=== PATIENT | male | born 1960 | race Caucasian/White ===

== ENCOUNTER 2018-06-25 13:19 | Inpatient (IN) | payer OTHER ==
--- NOTE | 2018-06-25 13:27 | PDOC ---
History of Present Illness - General Chief Complaint: Nausea/Vomiting Stated Complaint: Nausea/Vomiting Time Seen by Provider: 06/25/18 13:26 History Source: Patient, Jail Records Exam Limitations: No Limitations - History of Present Illness Initial Comments: 06/25/18 13:27 57 year old man with a history of ESRD and DM who presents from [facility] with profuse unremitting diarrhea for 1 day and found to be positive for C. diff and with new fever of 101F and RLQ pain that is sharp and nonradiating. The patient reports that prior to yesterday he had a 2 day history of constipation and 1 episode of NBNB vomiting. The patient states that he got a dose of antibiotics at [facility] but he is not sure what antibiotic was given. He denies any nausea at bedside, shortness of breath or chest pain. He has no other complaints at bedside but having active bowel movements at bedside. He reports that he is at [facility] because he had a high fever approx 3 weeks ago and subsequently lost the use of his legs, but is unable to provide further history. Per [facility]: the patient's stool culture was unconfirmed for C.diff and he recieved 2 doses of IV 500mg Flagyl last dose at 0600 today. PMHX: as in HPI PSHX: R nephrectomy Meds: cortisone (gout) Allergies: NKDA Tob: none Etoh: none Rec drugs: none Past History - Past Medical History Allergies/Adverse Reactions: Allergies Allergy/AdvReac Type Severity Reaction Status Date / Time No Known Allergies Allergy Verified 06/25/18 13:28 Home Medications: Ambulatory Orders Acetaminophen [Tylenol .Extra-Strength -] 500 mg PO Q4H PRN 06/25/18 Aspirin 81 mg PO DAILY 06/25/18 Calcium Acetate [Phoslyra] 667 mg PO DAILY 06/25/18 Levothyroxine [Synthroid -] 25 mcg PO DAILY 06/25/18 Ondansetron HCl [Zofran] 4 mg PO PRN PRN 06/25/18 Simvastatin [Zocor -] 20 mg PO HS 06/25/18 Vitamin B Comp W-C [Nephro-Brad -] 1 tablet PO DAILY 06/25/18 Cholestyramine/Aspartame [Questran Light Packet -] 4 gm PO DAILY #30 packet Insulin (Levemir) [Levemir Vial] 7 units SQ HS #30 units 07/01/18 Vancomycin Oral Solution 125 mg PO Q6HPO 10 Days ml 07/01/18 Review of Systems - Review of Systems Able to Perform ROS?: Yes Is the patient limited Frisian proficient: No Constitutional: Yes: See HPI, Fever. No: Chills, Diaphoresis Respiratory: No: Cough, Orthopnea, Shortness of Breath Cardiac (ROS): No: Chest Pain, Lightheadedness, Palpitations, Chest Tightness ABD/GI: Yes: Constipated, Diarrhea. No: Nausea, Vomiting : No: Burning, Dysuria, Hematuria Neurological: No: Headache, Numbness, Tingling *Physical Exam - Physical Exam Comments: 06/25/18 14:02 GENERAL: Awake, alert, and fully oriented, in no acute distress HEAD: No signs of trauma, normocephalic, atraumatic EYES: EOMI, sclera anicteric, conjunctiva clear ENT: oropharynx clear without exudates. Moist mucosa NECK: Normal ROM, supple, no lymphadenopathy, JVD, or masses LUNGS: No distress, speaks full sentences, clear to auscultation anteriorly HEART: Regular rate and rhythm, normal S1 and S2, no murmurs, rubs or gallops, peripheral pulses normal and equal bilaterally. ABDOMEN: Soft, + RLQ tenderness, normoactive bowel sounds. No guarding, no rebound. No masses EXTREMITIES : Normal inspection, Normal range of motion, no edema. No clubbing or cyanosis. NEUROLOGICAL: baseline parapalegia, Normal speech SKIN: Warm, Dry, normal turgor, no rashes or lesions noted ED Treatment Course - LABORATORY CBC & Chemistry Diagram: 07/01/18 08:30 07/01/18 08:30 Medical Decision Making - Medical Decision Making 57 year old man with a history of ESRD and DM who presents from [facility] with profuse unremitting diarrhea for 1 day and found to be positive for C. diff and with new fever of 101F and RLQ pain that is sharp and nonradiating. The patient reports that prior to yesterday he had a 2 day history of constipation and 1 episode of NBNB vomiting. The patient states that he got a dose of antibiotics at [facility] but he is not sure what antibiotic was given. DDX including but not limited to: C.diff vs appendicitis vs toxic megacolon W/U: - cbc, cmp, blood culture, stool culture, - vbg, TX: - Flagyl ED Course: 06/25/18 14:16 [facility] contacted for collateral information. Unable to provide further medical history beyond admission to facility on Jun 12 at which time the patient had the diagnosis of ESRD and DM. 06/25/18 14:22 Patient accepted to medicine team. *DC/Admit/Observation/Transfer Diagnosis at time of Disposition: Diarrhea - Discharge Dispostion Disposition: HOME Condition at time of disposition: Improved Decision to Admit order: Yes - Prescriptions - Referrals - Patient Instructions - Post Discharge Activity
[2018-06-25] MEDS ORDERED: SODIUM CHLORIDE 1,000 ML IV SCH ×3 (13:45→23:45)
[2018-06-25 14:01] LABS: EOS % 0.8 % (0-4.5); HEMATOCRIT 20.8 % (35.4-49); LYMPH % 12.6 % (8-40); MCH 30.5 pg (25.7-33.7); MCHC 33.5 g/dl (32.0-35.9); MEAN PLT VOLUME 8.2 fl (7.5-11.1); MONO % 14.2 % (3.8-10.2); NEUT % 71.4 % (42.8-82.8); PLATELET COUNT 194 K/MM3 (134-434); RBC 2.28 M/mm3 (4.00-5.60); RDW 17.2 % (11.9-15.9); WHITE BLOOD COUNT 6.3 K/mm3 (4.0-10.0)
[2018-06-25 14:38] LABS: ACANTHOCYTES 0; ANISOCYTOSIS 0; HELMET CELLS 0; HOWELL-JOLLY BODIES 0; MACROCYTOSIS 0; OVALOCYTE 0; PLATELET ESTIMATE NORMAL; ROULEAU 0; SICKELED CELLS 0; TARGET CELLS 0; TEAR DROP CELLS 0; TOXIC GRANULATION 0
[2018-06-25 14:51] LABS: ALBUMIN 2.1 g/dl (3.4-5.0); ANION GAP 13 MMOL/L (8-16); BLOOD UREA NITROGEN 65 mg/dL (7-18); CHLORIDE 107 mmol/L (98-107); CO2 19 mmol/L (21-32); CREATININE 4.6 mg/dL (0.55-1.3); GLUCOSE,RANDOM 130 mg/dL (74-106); POTASSIUM 3.2 mmol/L (3.5-5.1); SGOT/AST 12 U/L (15-37); SGPT/ALT 15 U/L (13-61); SODIUM 139 mmol/L (136-145)
[2018-06-25 14:52] LABS: ALK PHOS 84 U/L (45-117); BILIRUBIN,TOTAL 0.4 mg/dL (0.2-1.0); TOT PROT 5.5 g/dl (6.4-8.2)
[2018-06-25 15:01] LABS: INR 1.58 (0.83-1.09); PROTHROMBIN TIME (PATIENT) 17.9 SEC (9.7-13.0)
[2018-06-25 15:03] LABS: ACTIVATED PTT 32.8 SECONDS (25.2-36.5)
[2018-06-25 15:06] LABS: VENOUS PC02 37.6 mmHg (38-52); VENOUS PH 7.4 (7.32-7.42)
[2018-06-25 15:11] LABS: CALCIUM 6.6 mg/dL (8.5-10.1)
[2018-06-25] MEDS ORDERED: CALCIUM CHLORIDE 10% 1 GM/10 ML *VIAL IVPUSH ONE (15:31)
[2018-06-25] MEDS ORDERED: CALCIUM CHLORIDE 1 GM/10 ML *DISP.SYRIN ONE (15:36)
--- NOTE | 2018-06-25 15:36 | EKG ---
Test Reason : Blood Pressure : / mmHG Vent. Rate : 113 BPM Atrial Rate : 113 BPM P-R Int : 132 ms QRS Dur : 090 ms QT Int : 354 ms P-R-T Axes : 026 018 086 degrees QTc Int : 485 ms SINUS TACHYCARDIA OTHERWISE NORMAL ECG NO PREVIOUS ECGS AVAILABLE Confirmed by JILL JUAREZ MD ([id number]) on 06/25/2018 3:35:48 PM Referred By: Confirmed By:JILL JUAREZ MD
--- NOTE | 2018-06-25 15:38 | PDOC ---
Attending Attestation - Resident Resident Name: Elizabeth Arredondo - ED Attending Attestation I have performed the following: I have examined & evaluated the patient, The case was reviewed & discussed with the resident, I agree w/resident's findings & plan, Exceptions are as noted - HPI HPI: 06/25/18 15:35 57 yo male currently in rehab s/p nephrectomy , here with diarrhea, f/c. was tested for c diff still pending, sent here for fever 101 diarrhea and vomiting. pt states he was up and walking with pt, until 2 days ago. started getting abd pain, unable to have a bowel movement. requested a enema which he never received, then started having loose stool. all nonbloody nonbilious. was started on flagyl for possible c diff, received two doses prior to transfer to ed for evaluation. c/o right sided abd pain. 06/25/18 16:42 - Physicial Exam PE: 06/25/18 15:36 awake alert NAD lungs clear bilaterally. heart rrr no mrg. abd soft rlq ttp, no rebound no guarding. . skin warm and dry. 06/25/18 16:43 - Medical Decision Making 06/25/18 15:37 differential electrolyte abnormalities. dehydration, colitis, sepsis, other infection such as pna or uti. plan labs c diff stool cultrues, cxr, iv hydration will like require admission. 06/25/18 16:44 06/25/18 16:46 labs noted for hypocalcemia. given flagyl 500 po, lactic acid normal. iv hydration 1 L NS. placed contact islotion. ct a/p results pending. given 1g caCL Heart Score/ECG Review #1 ECG reviewed & interpreted by me at: 14:50 General ECG Interpretation: Sinus Rhythm, Normal Intervals, No acute ischemic changes Compared to previous ECG there are: Other (sinus tachycardia 114 qtc, 485, nml)
--- NOTE | 2018-06-25 18:01 | HP ---
CHIEF COMPLAINT: Diarrhea PCP: Dr. Luis Santiago/[facility] HISTORY OF PRESENT ILLNESS: 57 year-old male with a PMH significant for ESRD (last session Friday), IDDM, and renal carcinoma s/p right nephrectomy (April 2018, [facility]). Patient presented to ED from [facility] where he has been for the past two weeks for short- term rehab following surgery. Multiple episodes of non-bloody diarrhea x 48 hours. Last episode 11:00 am today. Reportedly had fever to 101 prior to transfer from [facility] to ED. Per [facility], stool culture was unconfirmed for C.diff and patient was started on IV metronidazole. ER course was notable for: (1) T 99.7, BP 126/60, p118 (2) K 3.2, Ca 6.6 -->corrected 8.1 (3) Hgb 7.0 (4) NS x 2L (5) Metronidazole 500mg x 1; calcium chloride 1g x 1 (6) CTAP: prominent acute proctocolitis; mild involvement of rest of colon; paucity of small bowel loops (resection v. atrophy?); s/p right nephrectomy; pericardial effusion Recent Travel: No PAST MEDICAL HISTORY: ESRD IDDM Renal carcinoma PAST SURGICAL HISTORY: Right nephrectomy (April 2018, [facility]) Social History: Smoking: never Alcohol: no Drugs: no Family History: Allergies No Known Allergies Allergy (Verified 06/25/18 13:28) HOME MEDICATIONS: Home Medications Medication Instructions Recorded Acetaminophen [Tylenol -] 500 mg PO Q4H PRN 06/25/18 Aspirin 81 mg PO DAILY 06/25/18 Calcium Acetate [Phoslyra] 667 mg PO DAILY 06/25/18 Colchicine 0.6 mg PO DAILY 06/25/18 Insulin Detemir [Levemir Flextouch] 14 unit SQ DAILY 06/25/18 Levothyroxine [Synthroid -] 25 mcg PO DAILY 06/25/18 Metronidazole/Sodium Chloride 500 mg IV TID 06/25/18 [Metronidazole 500 mg/100 ml] Ondansetron HCl [Zofran] 4 mg PO PRN PRN 06/25/18 Sennosides [Senna -] 1 tab PO HS 06/25/18 Simvastatin [Zocor -] 20 mg PO HS 06/25/18 Vitamin B Comp W-C [Nephro-Brad -] 1 tablet PO DAILY 06/25/18 REVIEW OF SYSTEMS CONSTITUTIONAL: Absent: fever, chills, diaphoresis, generalized weakness, malaise, loss of appetite, weight change HEENT: Absent: rhinorrhea, nasal congestion, throat pain, throat swelling, difficulty swallowing, mouth swelling, ear pain, eye pain, visual changes CARDIOVASCULAR: Absent: chest pain, syncope, palpitations, irregular heart rate, lightheadedness , peripheral edema RESPIRATORY: Absent: cough, shortness of breath, dyspnea with exertion, orthopnea, wheezing, stridor, hemoptysis GASTROINTESTINAL: +diarrhea, RLQ pain, fever Absent: abdominal distension, nausea, vomiting, constipation, melena, hematochezia GENITOURINARY: Absent: dysuria, frequency, urgency, hesitancy, hematuria, flank pain, genital pain MUSCULOSKELETAL: Absent: myalgia, arthralgia, joint swelling, back pain, neck pain SKIN: Absent: rash, itching, pallor HEMATOLOGIC/IMMUNOLOGIC: Absent: easy bleeding, easy bruising, lymphadenopathy, frequent infections ENDOCRINE: Absent: unexplained weight gain, unexplained weight loss, heat intolerance, cold intolerance NEUROLOGIC: Absent: headache, focal weakness or paresthesias, dizziness, unsteady gait, seizure, mental status changes, bladder or bowel incontinence PSYCHIATRIC: Absent: anxiety, depression, suicidal or homicidal ideation, hallucinations. PHYSICAL EXAMINATION Vital Signs - 24 hr 06/25/18 06/25/18 13:26 15:34 Temperature 99.7 F H Pulse Rate 118 H Pulse Rate [ 108 H Right Radial] Respiratory 18 18 Rate Blood Pressure 126/60 Blood Pressure 118/70 [Right Arm] O2 Sat by Pulse 99 100 Oximetry (%) GENERAL: Awake, alert, and fully oriented, in no acute distress. Pale. Fatigued. HEAD: Normal with no signs of trauma. EYES: Pupils equal, round and reactive to light, extraocular movements intact, sclera anicteric, conjunctiva clear. No lid lag. EARS, NOSE, THROAT: Ears normal, nares patent, oropharynx clear without exudates. Moist mucous membranes. NECK: Normal range of motion, supple without lymphadenopathy, JVD, or masses. LUNGS: Breath sounds equal, clear to auscultation bilaterally. No wheezes, and no crackles. No accessory muscle use. HEART: Regular rate and rhythm, S1 and S2 ABDOMEN: Soft, not distended, RLQ and RMQ tenderness MUSCULOSKELETAL: Normal range of motion at all joints. No bony deformities or tenderness. No CVA tenderness. UPPER EXTREMITIES: 2+ pulses, warm, well-perfused. No cyanosis. No clubbing. No peripheral edema. LOWER EXTREMITIES: 2+ pulses, warm, well-perfused. No calf tenderness. No peripheral edema. NEUROLOGICAL: Cranial nerves II-XII intact. Normal speech. Laboratory Results - last 24 hr 06/25/18 06/25/18 06/25/18 13:50 13:50 14:03 WBC 6.3 RBC 2.28 L Hgb 7.0 L Hct 20.8 L MCV 91.0 MCH 30.5 MCHC 33.5 RDW 17.2 H Plt Count 194 MPV 8.2 Absolute Neuts (auto) 4.5 Neutrophils % 71.4 Neutrophils % (Manual) 74.8 Band Neutrophils % 4.0 Lymphocytes % 12.6 Lymphocytes % (Manual) 10.1 Monocytes % 14.2 H Monocytes % (Manual) 9 Eosinophils % 0.8 Eosinophils % (Manual) 1.0 Basophils % 1.0 Basophils % (Manual) 0.0 Myelocytes % (Man) 0 Promyelocytes % (Man) 0 Blast Cells % (Manual) 0 Nucleated RBC % 0 Metamyelocytes 1 Hypochromia 0 Toxic Granulation 0 Dohle Bodies 0 Platelet Estimate Normal Polychromasia 0 Poikilocytosis 0 Basophilic Stippling 0 Anisocytosis 0 Microcytosis 0 Macrocytosis 0 Spherocytes 0 Sickle Cells 0 Target Cells 0 Tear Drop Cells 0 Ovalocytes 0 Stomatocytes 0 Helmet Cells 0 [place] Bodies 0 [place] Rings 0 Anjali Cells 0 Acanthocytes (Spur) 0 Rouleaux 0 Fragmented RBCs 0 Schistocytes 0 PT with INR 17.90 H INR 1.58 H PTT (Actin FS) 32.8 VBG pH POC VBG pCO2 POC VBG pO2 Mixed VBG HCO3 Sodium 139 Potassium 3.2 L Chloride 107 Carbon Dioxide 19 L Anion Gap 13 BUN 65 H Creatinine 4.6 H Creat Clearance w eGFR 13.14 Random Glucose 130 H Lactic Acid Calcium 6.6 L* Total Bilirubin 0.4 AST 12 L ALT 15 Alkaline Phosphatase 84 Total Protein 5.5 L Albumin 2.1 L 06/25/18 06/25/18 14:03 14:03 WBC RBC Hgb Hct MCV MCH MCHC RDW Plt Count MPV Absolute Neuts (auto) Neutrophils % Neutrophils % (Manual) Band Neutrophils % Lymphocytes % Lymphocytes % (Manual) Monocytes % Monocytes % (Manual) Eosinophils % Eosinophils % (Manual) Basophils % Basophils % (Manual) Myelocytes % (Man) Promyelocytes % (Man) Blast Cells % (Manual) Nucleated RBC % Metamyelocytes Hypochromia Toxic Granulation Dohle Bodies Platelet Estimate Polychromasia Poikilocytosis Basophilic Stippling Anisocytosis Microcytosis Macrocytosis Spherocytes Sickle Cells Target Cells Tear Drop Cells Ovalocytes Stomatocytes Helmet Cells Riddle-[place] Bodies [place] Rings Anjali Cells Acanthocytes (Spur) Rouleaux Fragmented RBCs Schistocytes PT with INR INR PTT (Actin FS) VBG pH 7.40 POC VBG pCO2 37.6 L POC VBG pO2 28.0 Mixed VBG HCO3 23.0 Sodium Potassium Chloride Carbon Dioxide Anion Gap BUN Creatinine Creat Clearance w eGFR Random Glucose Lactic Acid 0.8 Calcium Total Bilirubin AST ALT Alkaline Phosphatase Total Protein Albumin ASSESSMENT/PLAN: 57 year-old male with a PMH significant for ESRD (last session Friday), IDDM, and renal carcinoma s/p right nephrectomy (April 2018, [facility]). Admitted for acute proctocolitis. Acute proctocolitis --cultures collected and sent --metronidazole IV and levofloxacin IV ESRD --last session Friday --renal consult Anemia likely secondary to chronic disease --Hgt 7.0 --h/o transfusions x 3 since December 2017 --type and screen, stool occult pending --ordered 2U standby IDDM --Levemir --Novolog sliding scale coverage Renal carcinoma s/p right nephrectomy --patient advised tumor was Stage III --he was given prescription for Sutent but he has not started taking them for unclear reasons --oncologist at [facility]: Dr. Diony Padilla [phone] Hypokalemia --repleted with IV FEN Fluids: NS x 125mL/hr Electrolytes: replete as indicated Nutrition: NPO DVT prophylaxis: SCDs Dispo: continues to require inpatient care. Full code. Visit type - Emergency Visit Emergency Visit: Yes ED Registration Date: 06/25/18 Care time: The patient presented to the Emergency Department on the above date and was hospitalized for further evaluation of their emergent condition. - New Patient This patient is new to me today: Yes Date on this admission: 06/26/18 - Critical Care Critical Care patient: No Hospitalist Screening - Colonoscopy Questionnaire Colonoscopy Questionnaire: Colonoscopy Questionnaire - Patient: 50 - 75 years old and never had a screening colonoscopy: Unknown History of colon or rectal polyps, or CA: Yes History of IBD, Crohn's disease or UC: No History of abdominal radiation therapy as a child: No - Relative: 1 with colon or rectal CA, or polyps at age 60 or younger: No Colon or rectal CA diagnosed at age 45 or younger: No Multiple relatives with colon or rectal CA: No - Outcome: Screening Result: Positive Screen
[2018-06-25 20:48] LABS: BASO % 0.6 % (0-2.0); HEMATOCRIT 27.5 % (35.4-49); HEMOGLOBIN 9.4 GM/dL (11.7-16.9); LYMPH % 12.8 % (8-40); MCH 30.7 pg (25.7-33.7); MCHC 34.3 g/dl (32.0-35.9); MEAN CELL VOLUME 89.6 fl (80-96); MEAN PLT VOLUME 8.6 fl (7.5-11.1); MONO % 14.8 % (3.8-10.2); NEUT % 70.8 % (42.8-82.8); PLATELET COUNT 254 K/MM3 (134-434); RBC 3.07 M/mm3 (4.00-5.60); RDW 17.3 % (11.9-15.9); WHITE BLOOD COUNT 7.2 K/mm3 (4.0-10.0)
[2018-06-25] MEDS: KCL 10 MEQ IVPB 10 MEQ/100 ML INFUS.BAG IVPB SCH ×4 (21:25→22:28)
[2018-06-25] MEDS: ATORVASTATIN CA 10 MG TABLET (FP) PO SCH (21:28)
[2018-06-25 21:32] LABS: ALBUMIN 2.5 g/dl (3.4-5.0); ALK PHOS 97 U/L (45-117); ANION GAP 13 MMOL/L (8-16); BILIRUBIN,TOTAL 0.4 mg/dL (0.2-1.0); BLOOD UREA NITROGEN 78 mg/dL (7-18); CALCIUM 8.2 mg/dL (8.5-10.1); CHLORIDE 101 mmol/L (98-107); CO2 21 mmol/L (21-32); CREATININE 5.6 mg/dL (0.55-1.3); GLUCOSE,RANDOM 149 mg/dL (74-106); POTASSIUM 3.9 mmol/L (3.5-5.1); SGOT/AST 11 U/L (15-37); SGPT/ALT 19 U/L (13-61); SODIUM 135 mmol/L (136-145); TOT PROT 6.6 g/dl (6.4-8.2)
[2018-06-25] MEDS ORDERED: INSULIN (LEVEMIR) 100 UNITS/ML UNITS SQ SCH (22:00)
[2018-06-25 22:02] LABS: ANISOCYTOSIS 2+; MACROCYTOSIS 2+; PLATELET ESTIMATE ADEQUATE
[2018-06-25] MEDS: INSULIN SLIDING SCALE (NOVOLOG) 1 VIAL SQ SCH (22:24)
[2018-06-25] MEDS ORDERED: CIPROFLOXACIN 400 MG/D5W 400 MG/200 ML IVPB IVPB SCH (23:45)
[2018-06-26] MEDS ORDERED: CIPROFLOXACIN 400 MG/D5W 400 MG/200 ML IVPB IVPB ONE (00:15)
[2018-06-26 00:25] LABS: URINE APPEARANCE CLOUDY; URINE BILIRUBIN NEGATIVE (<2.0 mg/dL); URINE GLUCOSE (UA) NEGATIVE (NEGATIVE); URINE KETONE NEGATIVE (NEGATIVE); URINE LEUK ESTERASE TRACE (NEGATIVE); URINE NITRITE NEGATIVE (NEGATIVE); URINE UROBILINOGEN NEGATIVE mg/dL (0.2-1.0)
[2018-06-26 00:29] LABS: URINE COLOR YELLOW; URINE PROTEIN 2+ (NEGATIVE)
[2018-06-26 00:59] LABS: AMORP URATES FEW /hpf (NONE SEEN); EPI CELLS FEW /HPF (FEW); GRANULAR CASTS 15 /lpf; URINE HYALINE CAST 11 /lpf; URINE MUCUS RARE
[2018-06-26] MEDS: KCL 10 MEQ IVPB 10 MEQ/100 ML INFUS.BAG IVPB SCH ×3 (01:00→01:01)
[2018-06-26] MEDS: INSULIN SLIDING SCALE (NOVOLOG) 1 VIAL SQ SCH ×4 (06:09→21:27)
[2018-06-26] MEDS: LEVOTHYROXINE NA 25 MCG TABLET (FP) PO SCH (06:13)
[2018-06-26 07:19] LABS: BASO % 0.5 % (0-2.0); HEMATOCRIT 26.9 % (35.4-49); HEMOGLOBIN 9.1 GM/dL (11.7-16.9); LYMPH % 11.3 % (8-40); MCH 30.5 pg (25.7-33.7); MEAN CELL VOLUME 89.8 fl (80-96); MEAN PLT VOLUME 8.9 fl (7.5-11.1); MONO % 17.1 % (3.8-10.2); NEUT % 69.1 % (42.8-82.8); PLATELET COUNT 226 K/MM3 (134-434); RBC 2.99 M/mm3 (4.00-5.60); RDW 16.8 % (11.9-15.9); WHITE BLOOD COUNT 7.6 K/mm3 (4.0-10.0)
[2018-06-26 07:37] LABS: INR 1.16 (0.83-1.09); PROTHROMBIN TIME (PATIENT) 13.1 SEC (9.7-13.0)
[2018-06-26] MEDS ORDERED: INSULIN (NOVOLOG) ASPART 100 UNITS/ML 10ML VIAL ONE ×2 (07:38→11:50)
[2018-06-26 07:39] LABS: ALBUMIN 2.4 g/dl (3.4-5.0); ANION GAP 13 MMOL/L (8-16); BILIRUBIN,TOTAL 0.4 mg/dL (0.2-1.0); BLOOD UREA NITROGEN 82 mg/dL (7-18); CHLORIDE 100 mmol/L (98-107); CO2 21 mmol/L (21-32); CREATININE 5.5 mg/dL (0.55-1.3); GLUCOSE,RANDOM 130 mg/dL (74-106); MAGNESIUM 1.7 mg/dL (1.8-2.4); PHOSPHOROUS 3.3 mg/dL (2.5-4.9); POTASSIUM 4.1 mmol/L (3.5-5.1); SGOT/AST 15 U/L (15-37); SGPT/ALT 16 U/L (13-61); SODIUM 134 mmol/L (136-145); TOT PROT 6.3 g/dl (6.4-8.2)
[2018-06-26 07:40] LABS: ACTIVATED PTT 27.5 SECONDS (25.2-36.5); ALK PHOS 92 U/L (45-117)
[2018-06-26] MEDS: CALCIUM ACETATE 667 MG CAPSULE (FP) PO SCH ×2 (09:34→11:51)
[2018-06-26] MEDS ORDERED: COLCHICINE 0.6 MG TABLET (FP) PO SCH (10:00)
--- NOTE | 2018-06-26 10:31 | CONSULT ---
Consult Consult Specialty:: Oncology Referred by:: Edilia Watson Reason for Consultation:: S/P nephrectomy for RCC - History of Present Illness Chief Complaint: Fever, nause, vomiting , diarrhea, weakness - History Source History Provided By: Patient Limitations to Obtaining History: No Limitations - Past Medical History Gastrointestinal: Yes: Other (post- op nephrectomy - esophagitis and : renal fossa hematoma) Renal/: Yes: Hemodialysis, Other (s/p right nephrectomy in April 2018) Heme/Onc: Yes: Cancer Infectious Disease: Yes: Other (post -op nephrectomy prolonged hospital stay ?? 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 Medications - Allergies Allergies/Adverse Reactions: Allergies Allergy/AdvReac Type Severity Reaction Status Date / Time No Known Allergies Allergy Verified 06/25/18 13:28 - Home Medications Home Medications: Ambulatory Orders Acetaminophen [Tylenol -] 500 mg PO Q4H PRN 06/25/18 Aspirin 81 mg PO DAILY 06/25/18 Calcium Acetate [Phoslyra] 667 mg PO DAILY 06/25/18 Colchicine 0.6 mg PO DAILY 06/25/18 Insulin Detemir [Levemir Flextouch] 14 unit SQ DAILY 06/25/18 Levothyroxine [Synthroid -] 25 mcg PO DAILY 06/25/18 Metronidazole/Sodium Chloride [Metronidazole 500 mg/100 ml] 500 mg IV TID Ondansetron HCl [Zofran] 4 mg PO PRN PRN 06/25/18 Sennosides [Senna -] 1 tab PO HS 06/25/18 Simvastatin [Zocor -] 20 mg PO HS 06/25/18 Vitamin B Comp W-C [Nephro-Brad -] 1 tablet PO DAILY 06/25/18 Family Disease History - Family Disease History Family Disease History: CA: Grandparent (MGM - ovarian ca), Father (esophageal ca ), Brother (hodgkins Disease) Review of Systems - Review of Systems Constitutional: reports: Fever, Loss of Appetite, Malaise, Unintentional Wgt. Loss, Weakness Eyes: denies: Double Vision, Recent Change in Vision HENT: denies: Difficult Swallowing, Epistaxis, Hearing Loss, Throat Pain Neck: denies: Stiffness, Swollen Glands, Tenderness Cardiovascular: reports: Shortness of Breath. denies: Chest Pain Respiratory: reports: SOB on Exertion Gastrointestinal: reports: Abdominal Pain, Diarrhea, Nausea, Vomiting Blood Genitourinary: reports: Other (dialysis) Musculoskeletal: reports: Muscle Weakness Integumentary: denies: Bruising, Rash Neurological: denies: Confusion, Seizure Endocrine: reports: No Symptoms Hematology/Lymphatic: denies: Excessive Bleeding, Swollen Glands Psychiatric: reports: No Symptoms Physical Exam Vital Signs: Vital Signs Temperature 99.5 F 06/26/18 06:00 Pulse Rate 101 H 06/26/18 06:00 Respiratory Rate 20 06/26/18 06:00 Blood Pressure 139/57 06/26/18 06:00 O2 Sat by Pulse Oximetry (%) 98 06/25/18 22:48 Constitutional: Yes: Mild Distress Eyes: Yes: EOM Intact, PERRL. No: Diplopia, Ptosis, Sclera Icterus HENT: Yes: Normocephalic. No: Epistaxis, Pharyngeal Erythema, Thrush, Tonsillar Exudate Neck: Yes: Supple. No: Lymphadenopathy, Thyromegaly Cardiovascular: Yes: Regular Rate and Rhythm Respiratory: Yes: CTA Bilaterally Gastrointestinal: Yes: Soft, Tenderness, Other (RLQ tenderness). No: Splenomegaly (RUQ scar) Renal/: No: CVA Tenderness - Left, CVA Tenderness - Right, Hematuria Extremities: No: Calf Tenderness Edema: No Neurological: Yes: WNL Psychiatric: Yes: WNL Labs: CBC, BMP 06/26/18 06:30 06/26/18 06:30 Imaging - Results Cat Scan: Report Reviewed Problem List - Problems (1) Renal cell carcinoma Assessment/Plan: Initially presented in about December with hematuria. Underwent work up and had right nephrectomy in April 2018. Complicated post op course - in hospital most of May with fevers, esophagitis , post -op hematoma in renal bed. Required transfusion during hospital course. Given prescription for Sutent. ? benefit in adjuvant setting . Currently would hold on Sutent. Spoke with oncologist at [facility]- he will revisit ? of adjuvant Sutent in future. Code(s): C64.9 - MALIGNANT NEOPLASM OF UNSP KIDNEY, EXCEPT RENAL PELVIS (2) Diarrhea Assessment/Plan: Two days of nausea, emesis, diarrhea and CT with procto colitis Would suggest GI follow up. Check stools for occult blood ?? C. diff- although no report in Micro. On IV antibiotics. Code(s): R19.7 - DIARRHEA, UNSPECIFIED (3) Anemia of chronic disease Assessment/Plan: Suspect multifactorial anemia CKD, chronic infection post op at [facility], post op hematoma, ? component of blood loss, proctocolitis. Would be a candidate for Procrit per renal protocol @ 150units/per kg. three times per week during dialysis. Will need transfusion of packed cells. Code(s): D63.8 - ANEMIA IN OTHER CHRONIC DISEASES CLASSIFIED ELSEWHERE (4) ESRD (end stage renal disease) Assessment/Plan: On dialysis Follow up with renal. Erythropoietin per renal. Code(s): N18.6 - END STAGE RENAL DISEASE Assessment/Plan Plan : stool for occult blood pending results - DVT prophylaxis SCD transfusion of packed cells prn Fe++ studies GI and Renal evaluation No Sutent.
[2018-06-26 11:08] LABS: ANISOCYTOSIS 1+; MACROCYTOSIS 0; PLATELET ESTIMATE NORMAL
--- NOTE | 2018-06-26 12:12 | PN ---
Progress Note, Physician History of Present Illness: pt seen/ examined chart reviewed awake/ comfortable +ve diarrhea afebrile - Current Medication List Current Medications: Active Medications Atorvastatin Calcium (Lipitor -) 10 mg PO HS [facility] Last Admin: 06/25/18 21:28 Dose: Not Given Calcium Acetate (Phoslo -) 667 mg PO TIDCM [facility] Last Admin: 06/26/18 11:51 Dose: Not Given Metronidazole (Flagyl 500mg Premixed Ivpb -) 500 mg in 100 mls @ 100 mls/hr IVPB Q8H-IV [facility] Last Admin: 06/26/18 09:35 Dose: 100 mls/hr Sodium Chloride (Normal Saline -) 1,000 mls @ 125 mls/hr IV ASDIR [facility] Last Admin: 06/26/18 00:00 Dose: 125 mls/hr Levofloxacin (Levaquin 250 Mg Premixed Ivpb -) 250 mg in 50 mls @ 50 mls/hr IVPB Q2D@1000 [facility] Insulin Aspart (Novolog Vial Sliding Scale -) 1 vial SQ [facility]; Protocol Last Admin: 06/26/18 11:53 Dose: Not Given Insulin Detemir (Levemir Vial) 7 units SQ [facility] Levothyroxine Sodium (Synthroid -) 25 mcg PO DAILY@0700 [facility] Last Admin: 06/26/18 06:13 Dose: Not Given - Objective Vital Signs: Vital Signs Temperature 98.8 F 06/26/18 09:00 Pulse Rate 109 H 06/26/18 09:00 Respiratory Rate 18 06/26/18 09:00 Blood Pressure 117/71 06/26/18 09:00 O2 Sat by Pulse Oximetry (%) 99 06/26/18 09:00 Constitutional: Yes: No Distress, Calm Eyes: Yes: Conjunctiva Clear Neck: Yes: Supple Cardiovascular: Yes: Regular Rate and Rhythm Respiratory: Yes: CTA Bilaterally Gastrointestinal: Yes: Soft, Tenderness (rlq . bs + . No r/r.) Edema: No Labs: CBC, BMP 06/26/18 06:30 06/26/18 06:30 INR, PTT INR 1.16 (0.83-1.09) H 06/26/18 06:30 Problem List - Problems (1) Anemia of chronic disease Code(s): D63.8 - ANEMIA IN OTHER CHRONIC DISEASES CLASSIFIED ELSEWHERE (2) Diarrhea Code(s): R19.7 - DIARRHEA, UNSPECIFIED (3) ESRD (end stage renal disease) Code(s): N18.6 - END STAGE RENAL DISEASE (4) Renal cell carcinoma Code(s): C64.9 - MALIGNANT NEOPLASM OF UNSP KIDNEY, EXCEPT RENAL PELVIS Assessment/Plan Discussed abx stool culture c diff - pending gi eval will follow
--- NOTE | 2018-06-26 12:19 | CONSULT ---
Consult Consult Specialty:: Nephrology Reason for Consultation:: ESRD - History of Present Illness Chief Complaint: diarrhea History of Present Illness: Pt is 57 year old male with pmhx of ESRD (MWF), DM and renal cell cancer ( right nephrectomy) who presents to the ER with diarrhea. He also had fevers. I was called to evaluate him as he is on HD. His last dialysis session was on Friday. He missed his Friday dialysis. He has a permacath as access. He did have a fistula but it was not successful. He denies shortness of breath or palpitations. 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 Medications - Allergies Allergies/Adverse Reactions: Allergies Allergy/AdvReac Type Severity Reaction Status Date / Time No Known Allergies Allergy Verified 06/25/18 13:28 - Home Medications Home Medications: Ambulatory Orders Acetaminophen [Tylenol -] 500 mg PO Q4H PRN 06/25/18 Aspirin 81 mg PO DAILY 06/25/18 Calcium Acetate [Phoslyra] 667 mg PO DAILY 06/25/18 Colchicine 0.6 mg PO DAILY 06/25/18 Insulin Detemir [Levemir Flextouch] 14 unit SQ DAILY 06/25/18 Levothyroxine [Synthroid -] 25 mcg PO DAILY 06/25/18 Metronidazole/Sodium Chloride [Metronidazole 500 mg/100 ml] 500 mg IV TID Ondansetron HCl [Zofran] 4 mg PO PRN PRN 06/25/18 Sennosides [Senna -] 1 tab PO HS 06/25/18 Simvastatin [Zocor -] 20 mg PO HS 06/25/18 Vitamin B Comp W-C [Nephro-Brad -] 1 tablet PO DAILY 06/25/18 Family Disease History - Family Disease History Family Disease History: CA: Grandparent (MGM - ovarian ca), Father (esophageal ca ), Brother (hodgkins Disease) Review of Systems - Review of Systems Constitutional: reports: Fever, Malaise Eyes: reports: No Symptoms HENT: reports: No Symptoms Neck: reports: No Symptoms Cardiovascular: reports: No Symptoms Respiratory: reports: No Symptoms Gastrointestinal: reports: Diarrhea Genitourinary: reports: No Symptoms Musculoskeletal: reports: No Symptoms Neurological: reports: No Symptoms Endocrine: reports: No Symptoms Hematology/Lymphatic: reports: No Symptoms Psychiatric: reports: No Symptoms Physical Exam Vital Signs: Vital Signs Temperature 98.8 F 06/26/18 09:00 Pulse Rate 109 H 06/26/18 09:00 Respiratory Rate 18 06/26/18 09:00 Blood Pressure 117/71 06/26/18 09:00 O2 Sat by Pulse Oximetry (%) 99 06/26/18 09:00 Constitutional: Yes: Calm Eyes: Yes: Conjunctiva Clear HENT: Yes: Atraumatic Neck: Yes: Supple Cardiovascular: Yes: S1, S2 Respiratory: Yes: CTA Bilaterally Renal/: Yes: WNL Musculoskeletal: Yes: WNL Edema: No Neurological: Yes: Oriented Psychiatric: Yes: Oriented Labs: CBC, BMP 06/26/18 06:30 06/26/18 06:30 Imaging - Results Chest X-ray: Report Reviewed Problem List - Problems (1) Anemia of chronic disease Code(s): D63.8 - ANEMIA IN OTHER CHRONIC DISEASES CLASSIFIED ELSEWHERE (2) Diarrhea Code(s): R19.7 - DIARRHEA, UNSPECIFIED (3) ESRD (end stage renal disease) Code(s): N18.6 - END STAGE RENAL DISEASE (4) Renal cell carcinoma Code(s): C64.9 - MALIGNANT NEOPLASM OF UNSP KIDNEY, EXCEPT RENAL PELVIS Assessment/Plan Current Medications Generic Name Dose Route Start Last Admin Trade Name Freq PRN Reason Stop Dose Admin Atorvastatin Calcium 10 mg 06/25/18 22:00 06/25/18 21:28 Lipitor - PO Not Given HS JAMES Calcium Acetate 667 mg 06/26/18 08:00 06/26/18 11:51 Phoslo - PO Not Given TIDCM JAMES Metronidazole 500 mg in 100 mls @ 100 mls/hr 06/25/18 22:45 06/26/18 09:35 Flagyl 500mg Premixed Ivpb - IVPB 100 mls/hr Q8H-IV JAMES Administration Sodium Chloride 1,000 mls @ 125 mls/hr 06/25/18 23:45 06/26/18 00:00 Normal Saline - IV 125 mls/hr ASDIR JAMES Administration Levofloxacin 250 mg in 50 mls @ 50 mls/hr 06/28/18 10:00 Levaquin 250 Mg Premixed Ivpb - IVPB Q2D@1000 JAMES Insulin Aspart 1 vial 06/25/18 22:00 06/26/18 11:53 Novolog Vial Sliding Scale - SQ Not Given ACHS [facility] Protocol Insulin Detemir 7 units 06/26/18 22:00 Levemir Vial SQ HS [facility] Levothyroxine Sodium 25 mcg 06/26/18 07:00 06/26/18 06:13 Synthroid - PO Not Given DAILY@0700 [facility] Impression 1. ESRD 2. diarrhea 3. anemia 4. hypothyroid 5. renal cell cancer Plan - will arrange for HD today - hold colchicine - will give epogen today - will not UF volume - decrease rate of fluids - will follow - called HD unit for orders - 3:30 hrs, 2k bath, heparin 1000 bolus with 500 maintenance, aranesp 25 mcg given on Friday, venofer 50 weekly, access permacath
[2018-06-26] MEDS ORDERED: SODIUM CHLORIDE 250 ML IV PRN (12:35)
[2018-06-26] MEDS ORDERED: EPOETIN ALFA 2,000 UNIT/1 ML VIAL IVPUSH ONE (12:35)
--- NOTE | 2018-06-26 15:39 | CON.GI ---
Consult Consult Specialty:: GI Referred by:: Dr. Estelita Santiago Reason for Consultation:: Diarrhea - History of Present Illness Chief Complaint: Diarrhea History of Present Illness: 57 year old man sent from [facility], where is was undergoing rehab, for evaluation of diarrhea and fevers. Mr. Chavez explains that he recently had a prolonged 1 month hospitalization at [facility] for what sounds like an FUO work-up and denied any diarrhea at that time. Prior to the [facility] Admission, he was admitted to [facility] 04/29 where he underwent right nephrectomy secondary to renal cancer. While in rehab, for the past 1.5 days, he began experiencing fevers along with chills. He tells me that his temp was 101 yesterday and because of this they decided to send him to [facility] ER for further evaluation. In the ER, triage vitals revealed T: 99.7 P: 118 BP: 126/ 60. The ER note suggests that C. Diff stool study was at the [facility] however this was unconfirmed. I called the [facility] today: Stool C. Diff and culture were sent ,however, there were no results as of yet. He was given IV flagyl and levaquin in the ED and is continued on IV Abx. Mr. Chavez denied any associated rectal bleeding and described the stool as foul smelling. He has lower abdominal pain as well and continues to have loose/mucoid bowel movements. CT scan in the ED revealed proctosigmoiditis with probable more mild involvement of the remainder of the colon. He denies any similar episodes in the past and there is no personal or family history of IBD. His last colonoscopy was 10 years ago, which he states was "OK". he denies recent travel or change in dietary habits. There is no family history of colorectal cancer - History Source History Provided By: Patient, Medical Record Limitations to Obtaining History: No Limitations - Past Medical History Cardio/Vascular: Yes: HTN Gastrointestinal: Yes: Other (post- op nephrectomy - esophagitis and : renal fossa hematoma) Renal/: Yes: Renal Failure (CKD on HD) Heme/Onc: Yes: Other (Right renal cancer) Infectious Disease: Yes: Other Endocrine: Yes: Diabetes Mellitus (DM II), Hypothyroidism - Past Surgical History Past Surgical History: Yes: AV Fistula/Graft (Left AV fistula currently non- working), Nephrectomy (Right nephrectomy) Additional Surgical History: Permacath placement 12/28 - Alcohol/Substance Use Hx Alcohol Use: No - Smoking History Smoking history: Never smoked - Social History Usual Living Arrangement: With Spouse () ADL: Independent 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 Place of : [facility] History of Recent Travel: No Home Medications - Allergies Allergies/Adverse Reactions: Allergies Allergy/AdvReac Type Severity Reaction Status Date / Time No Known Allergies Allergy Verified 06/25/18 13:28 - Home Medications Home Medications: Ambulatory Orders Acetaminophen [Tylenol -] 500 mg PO Q4H PRN 06/25/18 Aspirin 81 mg PO DAILY 06/25/18 Calcium Acetate [Phoslyra] 667 mg PO DAILY 06/25/18 Colchicine 0.6 mg PO DAILY 06/25/18 Insulin Detemir [Levemir Flextouch] 14 unit SQ DAILY 06/25/18 Levothyroxine [Synthroid -] 25 mcg PO DAILY 06/25/18 Metronidazole/Sodium Chloride [Metronidazole 500 mg/100 ml] 500 mg IV TID Ondansetron HCl [Zofran] 4 mg PO PRN PRN 06/25/18 Sennosides [Senna -] 1 tab PO HS 06/25/18 Simvastatin [Zocor -] 20 mg PO HS 06/25/18 Vitamin B Comp W-C [Nephro-Brad -] 1 tablet PO DAILY 06/25/18 Family Disease History - Family Disease History Family Disease History: CA: Grandparent (Matrenal GM - ovarian ca), Father ( : 68: esophageal ca ), Brother (Alive: hodgkin'ss Disease), Other: Mother (Alive : healthy), Son (1, healthy), Daughter (1, healthy) Other Family History: No family history of colorectal cancer Review of Systems - Review of Systems Constitutional: reports: Chills, Fever, Weakness. denies: Unintentional Wgt. Loss Cardiovascular: denies: Chest Pain Respiratory: denies: Cough, SOB Gastrointestinal: reports: Abdominal Pain, Nausea. denies: Melena, Rectal Bleeding, Vomiting Blood Musculoskeletal: reports: Muscle Weakness Physical Exam-GI Vital Signs: Vital Signs Temperature 98.8 F 06/26/18 09:00 Pulse Rate 109 H 06/26/18 09:00 Respiratory Rate 06/26/18 09:00 Blood Pressure 117/71 06/26/18 09:00 O2 Sat by Pulse Oximetry (%) 99 06/26/18 09:00 Constitutional: Yes: Calm Eyes: No: Sclera Icterus Cardiovascular: Yes: Tachycardia. No: Murmur Respiratory: Yes: CTA Bilaterally Gastrointestinal Inspection: Yes: Scars (+ oblique RUQ scar) ...Auscultate: Yes: Normoactive Bowel Sounds ...Palpate: Yes: Soft, Tenderness (TTP in the pelvis and RLQ). No: Guarding, Hepatomegaly, Splenomegaly ...Percussion: No: Tympanitic ...Rectal Exam: Yes: Other (No external lesions, no masses, yellow mucoid stool in rectal vault. Specimen sent for guaiac and C. Diff.) Edema: No (No LE edema) Neurological: Yes: Alert (Alert, awake) Labs: CBC, BMP 06/26/18 06:30 06/26/18 06:30 INR, PTT INR 1.16 (0.83-1.09) H 06/26/18 06:30 Hepatic Panel Total Bilirubin 0.4 mg/dL (0.2-1.0) 06/26/18 06:30 AST 15 U/L (15-37) 06/26/18 06:30 ALT 16 U/L (13-61) 06/26/18 06:30 Alkaline Phosphatase 92 U/L (45-117) 06/26/18 06:30 Albumin 2.4 g/dl (3.4-5.0) L 06/26/18 06:30 Imaging - Results Cat Scan: Report Reviewed, Image Reviewed Problem List - Problems (1) Colitis Assessment/Plan: Colitis. Likely infectious and given history, CDAD would need to be considered higher in the differential The redundant sigmoid colon flopping over to the right abdomen likely accounts for the pelvic and right lower tenderness noted on physical exam and there does seem to be involvement of the more procximal colon as well. He is currently non-toxic appearing. I called the [facility] today and confirmed that the C. Diff and stool culture studies sent from 06/24 were not back as of yet. Plan for now would be: Full liquid diet Added Vanco 125mg PO Q6 Hrs D/C'd IV Flagyl Ordered stool c. diff study, Culture pending Avoid PPI use ID Consult placed Code(s): K52.9 - NONINFECTIVE GASTROENTERITIS AND COLITIS, UNSPECIFIED
[2018-06-26] MEDS ORDERED: EPOETIN ALFA 3,000 UNIT, EPOETIN ALFA 2,000 UNIT IVPUSH ONE (16:30)
[2018-06-26] MEDS: HEPARIN NA (PORCINE) 5,000 UNITS/ML 1ML VIAL IVPUSH SCH ×3 (16:45→18:47)
[2018-06-26] MEDS ORDERED: HEPARIN NA (PORCINE) 5,000 UNITS/ML 1ML VIAL IVPUSH ONE (16:45)
--- NOTE | 2018-06-26 16:51 | PN ---
Progress Note (short form) - Note Progress Note: ID consult dictated imp/reccd 57 year old man esrd/hd recent nephrectomy April right kidney describes a one month admission from 05/16 to 06/12 for fever- he has no idea of the infection- "I was pumped full of antibiotics" now in rehab at [facility] since 06/12 admitted with one day of nonbloody diarrhea and fever 101 ct scan with colitis, more prominent proctosigmoid, but also rest of colon bloodcultures negative at 24 hours given levaquin and flagyl last night d/w GI fevers/diarrhea doubt line infection given negative blood cultures after 24 hours ?CDIFF given recent antibiotics agree with stool culture, wbc and cdiff empiric po vancomycin esrd/hd s/p right nephrectomy Problem List - Problems (1) Fever Code(s): R50.9 - FEVER, UNSPECIFIED (2) Diarrhea Code(s): R19.7 - DIARRHEA, UNSPECIFIED (3) C. difficile colitis Code(s): A04.72 - ENTEROCOLITIS D/T CLOSTRIDIUM DIFFICILE, NOT SPCF RECUR (4) ESRD (end stage renal disease) Code(s): N18.6 - END STAGE RENAL DISEASE
[2018-06-26] MEDS: VANCOMYCIN 250 MG/5 ML ORAL SOLUTION PO SCH (18:01)
--- NOTE | 2018-06-26 18:45 | CONS ---
INFECTIOUS DISEASE CONSULTATION DATE OF CONSULTATION: DATE OF DICTATION: 06/26/2018 REQUESTING PHYSICIAN: Dr. Fernando This is a 57-year-old man who underwent a right nephrectomy in April 2018. Prior to that, in December, he had started dialysis via PermCath because his AV fistula failed. He reports that the nephrectomy went fine. The date was April 16. He went home. May 16, he was readmitted to the [facility], which is where he had his nephrectomy, with high-grade fever. He reports being there for about a month. He was admitted on June 12 to [facility] for rehab. He reports with fevers; he has no idea what the cause of his fevers was. He reports getting pumped with antibiotics, thinking he was going to . He ultimately was discharged from the group home and is currently at [facility]. He is now admitted from there to the hospital with a 1-day history of 1 episode of vomiting, fever of 101, multiple episodes of non-bloody diarrhea, and right lower quadrant pain. He had a CAT scan in the emergency room. There was no appendicitis. There was no diverticulitis. He had acute proctocolitis with evidence probably of colitis in the remainder of the colon as well. He was given Levaquin and Flagyl in the emergency room. Blood cultures at 24 hours are negative. Currently, he is on hemodialysis. He reports continued diarrhea. His vomiting has resolved. PAST MEDICAL HISTORY: Notable for end-stage renal disease, diabetes, renal carcinoma. He is status post right nephrectomy in April 2018. SOCIAL HISTORY: There is no history of any cigarette and substance use. He was living at home prior to having this happen. ALLERGIES: He has no known drug allergies. MEDICATIONS AT [facility]: Currently include aspirin, calcium acetate, colchicine, insulin, Zofran, senna, Zocor, and vitamin B. REVIEW OF SYSTEMS: He denies headache. He denies fevers, chills. His vomiting has resolved. He still notes he has some residual right lower quadrant pain. He has no shortness of breath. He has no cough. FAMILY HISTORY: Notable for esophageal cancer in his father, a brother with Hodgkin disease, and he has healthy children. He is . He was living with his prior to this group home admission. There is no history of any recent travel. PHYSICAL EXAMINATION: General: He is awake and alert. He is currently on hemodialysis. Vital Signs: Temperature is 98.8, pulse of 109, blood pressure 112/71, respiratory rate is 18. HEENT: He is normocephalic. His eyes are anicteric. Neck: Supple. Lungs: Clear to auscultation. Heart: Regular rate and rhythm. Abdomen: Soft. He has mild right lower quadrant tenderness. Extremities: Without edema. LABORATORY DATA: Labs are notable for a white count of 7.6, hemoglobin 9.1, platelets are 226. BUN is 82 and creatinine 5.5. LFTs are normal. Urinalysis has trace leukocyte esterase, and blood cultures are negative after 24 hours. In summary, this is a 57-year-old man admitted with: 1. Fever, diarrhea. I doubt line infection given the PermCath site, which I did not report in my physical, is without any tenderness, given negative blood cultures up to 24 hours. Question whether he has C. difficile given recent antibiotics. I would agree with stool cultures, stool white cells, and C. difficile testing. Empiric oral vancomycin given the CAT scan findings. 2. End-stage renal disease on hemodialysis. 3. Status post right nephrectomy. Case was discussed with GI. Further recommendations to follow. Joya [id number]
[2018-06-26] MEDS: ATORVASTATIN CA 10 MG TABLET (FP) PO SCH (21:24)
[2018-06-26] MEDS: INSULIN (LEVEMIR) 100 UNITS/ML UNITS SQ SCH (21:25)
[2018-06-26] MEDS: SODIUM CHLORIDE 1,000 ML IV SCH ×2 (21:28→21:29)
[2018-06-27] MEDS: VANCOMYCIN 250 MG/5 ML ORAL SOLUTION PO SCH ×5 (06:01→23:19)
[2018-06-27] MEDS: LEVOTHYROXINE NA 25 MCG TABLET (FP) PO SCH (06:01)
[2018-06-27] MEDS: INSULIN SLIDING SCALE (NOVOLOG) 1 VIAL SQ SCH ×4 (06:01→21:36)
[2018-06-27 08:19] LABS: ALBUMIN 2.1 g/dl (3.4-5.0); ANION GAP 13 MMOL/L (8-16); BLOOD UREA NITROGEN 35 mg/dL (7-18); CALCIUM 7.9 mg/dL (8.5-10.1); CHLORIDE 104 mmol/L (98-107); CO2 23 mmol/L (21-32); CREATININE 3.4 mg/dL (0.55-1.3); GLUCOSE,RANDOM 123 mg/dL (74-106); POTASSIUM 3.7 mmol/L (3.5-5.1); SGOT/AST 16 U/L (15-37); SGPT/ALT 16 U/L (13-61); SODIUM 140 mmol/L (136-145)
[2018-06-27 08:22] LABS: ALK PHOS 93 U/L (45-117); BILIRUBIN,TOTAL 0.3 mg/dL (0.2-1.0); TOT PROT 5.8 g/dl (6.4-8.2)
[2018-06-27] MEDS: CALCIUM ACETATE 667 MG CAPSULE (FP) PO SCH ×4 (08:50→16:34)
[2018-06-27 09:27] LABS: BASO % 0.6 % (0-2.0); EOS % 1.2 % (0-4.5); HEMATOCRIT 26.4 % (35.4-49); LYMPH % 13.4 % (8-40); MCH 30.9 pg (25.7-33.7); MEAN PLT VOLUME 9.4 fl (7.5-11.1); MONO % 15.3 % (3.8-10.2); NEUT % 69.5 % (42.8-82.8); PLATELET COUNT 227 K/MM3 (134-434); RDW 16.8 % (11.9-15.9); WHITE BLOOD COUNT 8.5 K/mm3 (4.0-10.0)
[2018-06-27 10:15] LABS: SERUM IRON SATURATION 19 % (15-55); TOTAL IRON BINDING CAPACITY 133 ug/dL (250-450); UIBC 108 ug/dL (111-343)
[2018-06-27] MEDS ORDERED: PT OWN MED DRAWER 7, Y5N ONE (11:03)
--- NOTE | 2018-06-27 11:37 | PN ---
Progress Note (short form) - Note Progress Note: comfortable feels same + diarrhea all f/u noted low grade temp. Vital Signs Temp 100.2 F H 06/27/18 08:27 Pulse 114 H 06/27/18 08:27 Resp 22 06/27/18 08:27 BP 121/67 06/27/18 08:27 Pulse Ox 99 06/26/18 22:00 Intake & Output 06/26/18 06/26/18 06/27/18 11:59 23:59 11:59 Intake Total 550 980 825 Balance 550 980 825 Weight 190 lb 2 oz Intake: IV 800 825 Normal Saline - 1,000 ml 800 825 @ 75 mls/hr IV ASDIR [facility] Rx#:[id number] IVPB 550 100 Oral 80 Other: Voiding Method Urinal Urinal Urinal # Unmeasured Voids Void 1 Bowel Movement Yes: small # Bowel Movements 2 Weight Measurement Method Built in [facility] Active Medications Atorvastatin Calcium (Lipitor -) 10 mg PO [facility] Last Admin: 06/26/18 21:24 Dose: 10 mg Calcium Acetate ([facility]oslo -) [facility] Last Admin: 06/27/18 11:12 Dose: 667 mg Sodium Chloride (Normal Saline -) 250 mls @ 3,000 mls/hr IV PRN PRN PRN Reason: Hypotension during Dialysis Stop: 06/27/18 12:35 Insulin Aspart (Novolog Vial Sliding Scale -) 1 vial SQ [facility]; Protocol Last Admin: 06/27/18 06:01 Dose: Not Given Insulin Detemir (Levemir Vial) 7 units SQ [facility] Last Admin: 06/26/18 21:25 Dose: 7 units Levothyroxine Sodium (Synthroid -) 25 mcg PO DAILY@0700 [facility] Last Admin: 06/27/18 06:01 Dose: 25 mcg Vancomycin HCl (Vancomycin Oral Solution) 125 mg PO Q6HPO [facility] Last Admin: 06/27/18 11:13 Dose: 125 mg CBC, BMP 06/27/18 07:30 06/27/18 07:30 Microbiology 06/25/18 22:00 Urine Culture - Final Urine - Urine Clean Catch NO GROWTH OBTAINED 06/26/18 22:00 Clostridium difficile Antigen (LUCIANA) - Final Stool Clostridium difficile Toxin Assay - Final 06/25/18 14:03 Blood Culture - Preliminary Blood - Peripheral Venous NO GROWTH OBTAINED AFTER 24 HOURS, INCUBATION TO CONTINUE FOR 4 DAYS. 06/25/18 14:03 Blood Culture - Preliminary Blood - Peripheral Venous NO GROWTH OBTAINED AFTER 24 HOURS, INCUBATION TO CONTINUE FOR 4 DAYS. Physical Constitutional: Yes: No Distress, Calm Eyes: Yes: Conjunctiva Clear Neck: Yes: Supple Cardiovascular: Yes: Regular Rate and Rhythm. Right side chest- shiley + Respiratory: Yes: CTA Bilaterally Gastrointestinal: Yes: Soft, Tenderness (rlq . bs + . No r/r.) Edema: No Assessment/Plan In summary 57 year-old male with a PMH significant for ESRD (last session Friday), IDDM, and renal carcinoma s/p right nephrectomy (April 2018, [facility]). Patient presented to ED from [facility] where he has been for the past two weeks for short- term rehab following surgery. Multiple episodes of non-bloody diarrhea x 48 hours. . Reportedly had fever to 101 prior to transfer from [facility] to ED Continue abx-- po vanco stool culture c diff - pending gi/ i/d on case will follow
--- NOTE | 2018-06-27 15:10 | PN ---
Progress Note, Physician History of Present Illness: Pt seen and examined at bedside. He is awake and alert. He complains of diarrhea. - Current Medication List Current Medications: Active Medications Atorvastatin Calcium (Lipitor -) 10 mg PO HS [facility] Last Admin: 06/26/18 21:24 Dose: 10 mg Calcium Acetate (Phoslo -) 667 mg PO TIDCM [facility] Last Admin: 06/27/18 12:30 Dose: 667 mg Insulin Aspart (Novolog Vial Sliding Scale -) 1 vial SQ [facility]; Protocol Last Admin: 06/27/18 12:29 Dose: Not Given Insulin Detemir (Levemir Vial) 7 units SQ [facility] Last Admin: 06/26/18 21:25 Dose: 7 units Levothyroxine Sodium (Synthroid -) 25 mcg PO DAILY@0700 [facility] Last Admin: 06/27/18 06:01 Dose: 25 mcg Vancomycin HCl (Vancomycin Oral Solution) 125 mg PO Q6HPO [facility] Last Admin: 06/27/18 11:13 Dose: 125 mg - Objective Vital Signs: Vital Signs Temperature 99.0 F 06/27/18 14:56 Pulse Rate 111 H 06/27/18 14:56 Respiratory Rate 20 06/27/18 14:56 Blood Pressure 142/73 06/27/18 14:56 O2 Sat by Pulse Oximetry (%) 99 06/26/18 22:00 Constitutional: Yes: Calm Eyes: Yes: Conjunctiva Clear HENT: Yes: Atraumatic Neck: Yes: Supple Cardiovascular: Yes: S1, S2 Respiratory: Yes: CTA Bilaterally Gastrointestinal: Yes: Normal Bowel Sounds, Soft Genitourinary: Yes: WNL Musculoskeletal: Yes: WNL Edema: No Neurological: Yes: Oriented Psychiatric: Yes: Oriented Labs: CBC, BMP 06/27/18 07:30 06/27/18 07:30 INR, PTT INR 1.16 (0.83-1.09) H 06/26/18 06:30 Problem List - Problems (1) Anemia of chronic disease Code(s): D63.8 - ANEMIA IN OTHER CHRONIC DISEASES CLASSIFIED ELSEWHERE (2) Diarrhea Code(s): R19.7 - DIARRHEA, UNSPECIFIED (3) ESRD (end stage renal disease) Code(s): N18.6 - END STAGE RENAL DISEASE (4) Renal cell carcinoma Code(s): C64.9 - MALIGNANT NEOPLASM OF UNSP KIDNEY, EXCEPT RENAL PELVIS Assessment/Plan Current Medications Generic Name Dose Route Start Last Admin Trade Name Mitchell PRN Reason Stop Dose Admin Atorvastatin Calcium 10 mg 06/25/18 22:00 06/26/18 21:24 Lipitor - PO 10 mg HS JAMES Administration Calcium Acetate 667 mg 06/26/18 08:00 06/27/18 12:30 Phoslo - PO 667 mg TIDCM JAMES Administration Insulin Aspart 1 vial 06/25/18 22:00 06/27/18 12:29 Novolog Vial Sliding Scale - SQ Not Given ACHS [facility] Protocol Insulin Detemir 7 units 06/26/18 22:00 06/26/18 21:25 Levemir Vial SQ 7 units HS JAMES Administration Levothyroxine Sodium 25 mcg 06/26/18 07:00 06/27/18 06:01 Synthroid - PO 25 mcg DAILY@0700 JAMES Administration Vancomycin HCl 125 mg 06/26/18 15:53 06/27/18 11:13 Vancomycin Oral Solution PO 125 mg Q6HPO JAMES Administration Impression 1. ESRD 2. diarrhea 3. anemia 4. hypothyroid 5. renal cell cancer Plan - pt tolerated HD yesterday - he is having active diarrhea - decrease rate of fluids - epogen for anemia - will follow - 3:30 hrs, 2k bath, heparin 1000 bolus with 500 maintenance, aranesp 25 mcg given on Friday, venofer 50 weekly, access permacath
[2018-06-27] MEDS ORDERED: INSULIN (NOVOLOG) ASPART 100 UNITS/ML 10ML VIAL ONE (16:32)
[2018-06-27 17:14] LABS: ANISOCYTOSIS 1+; MACROCYTOSIS 0; PLATELET ESTIMATE NORMAL
[2018-06-27] MEDS: ATORVASTATIN CA 10 MG TABLET (FP) PO SCH (21:36)
[2018-06-27] MEDS: INSULIN (LEVEMIR) 100 UNITS/ML UNITS SQ SCH (21:36)
[2018-06-28] MEDS: VANCOMYCIN 250 MG/5 ML ORAL SOLUTION PO SCH ×3 (05:40→17:16)
[2018-06-28] MEDS: INSULIN SLIDING SCALE (NOVOLOG) 1 VIAL SQ SCH ×4 (06:19→22:05)
[2018-06-28] MEDS: LEVOTHYROXINE NA 25 MCG TABLET (FP) PO SCH (06:19)
[2018-06-28 06:39] LABS: HBSAG SCREEN Negative (Negative); HEP B CORE AB, TOT Negative (Negative)
[2018-06-28] MEDS: CALCIUM ACETATE 667 MG CAPSULE (FP) PO SCH ×3 (08:38→16:36)
--- NOTE | 2018-06-28 13:58 | PN ---
Progress Note (short form) - Note Progress Note: pt seen/ examined continue to have diarrhea anxious denies pain afebrile Vital Signs Temp 99.6 F 06/28/18 10:00 Pulse 111 H 06/28/18 10:00 Resp 20 06/28/18 10:00 BP 118/74 06/28/18 10:00 Pulse Ox 96 06/27/18 22:00 Intake & Output 06/27/18 06/28/18 06/28/18 23:59 11:59 23:59 Intake Total 995 Balance 995 Weight 189 lb 9.561 oz 181 lb 4.8 oz Intake: IV 375 Normal Saline - 1,000 ml 375 @ 75 mls/hr IV ASDIR [facility] Rx#:[id number] Oral 620 Other: Voiding Method Urinal Urinal # Unmeasured Voids Void 2 Bowel Movement No Yes # Bowel Movements 5 2 Height 5 ft 10 in Body Mass Index (BMI) 27.1 Weight Measurement Method [facility] Active Medications Atorvastatin Calcium (Lipitor -) 10 mg PO [facility] Last Admin: 06/27/18 21:36 Dose: 10 mg Calcium Acetate (Phoslo -) 667 mg PO TIDCM [facility] Last Admin: 06/28/18 11:44 Dose: 667 mg Insulin Aspart (Novolog Vial Sliding Scale -) 1 vial SQ [facility]; Protocol Last Admin: 06/28/18 11:42 Dose: Not Given Insulin Detemir (Levemir Vial) 7 units SQ [facility] Last Admin: 06/27/18 21:36 Dose: 7 units Levothyroxine Sodium (Synthroid -) 25 mcg PO DAILY@0700 [facility] Last Admin: 06/28/18 06:19 Dose: 25 mcg Vancomycin HCl (Vancomycin Oral Solution) 125 mg PO Q6HPO [facility] Last Admin: 06/28/18 11:44 Dose: 125 mg CBC, BMP 06/27/18 07:30 06/27/18 07:30 Microbiology 06/25/18 22:00 Salmonella/Shigella Culture - Final Stool NO GROWTH OF SALMONELLA OR SHIGELLA SPECIES OBTAINED Campylobacter Culture - Final NO GROWTH OF CAMPYLOBACTER SPECIES OBTAINED Yersinia Culture - Final NO GROWTH OF YERSINIA SPECIES OBTAINED Vibrio Culture - Final Escherichia coli 0157 Culture - Final NO GROWTH OF E COLI 0157 OBTAINED 06/26/18 22:00 Gram Stain - Final Stool 06/25/18 14:03 Blood Culture - Preliminary Blood - Peripheral Venous NO GROWTH OBTAINED AFTER 48 HOURS, INCUBATION TO CONTINUE FOR 3 DAYS. 06/25/18 14:03 Blood Culture - Preliminary Blood - Peripheral Venous NO GROWTH OBTAINED AFTER 48 HOURS, INCUBATION TO CONTINUE FOR 3 DAYS. Physical Constitutional: Yes: No Distress, Calm Eyes: Yes: Conjunctiva Clear Neck: Yes: Supple Cardiovascular: Yes: Regular Rate and Rhythm. Right side chest- shiley + Respiratory: Yes: CTA Bilaterally Gastrointestinal: Yes: Soft, Tenderness (rlq . bs + . No r/r.) Edema: No Assessment/Plan In summary 57 year-old male with a PMH significant for ESRD (last session Friday), IDDM, and renal carcinoma s/p right nephrectomy (April 2018, [facility]). Patient presented to ED from [facility] where he has been for the past two weeks for short- term rehab following surgery. Multiple episodes of non-bloody diarrhea x 48 hours. . Reportedly had fever to 101 prior to transfer from [facility] to ED Continue abx-- po vanco stool culture c diff - +ve gi/ i/d on case discussed with pt/ nursing staff c diff precautions will follow Problem List - Problems (1) C. difficile diarrhea Code(s): A04.72 - ENTEROCOLITIS D/T CLOSTRIDIUM DIFFICILE, NOT SPCF RECUR (2) Anemia of chronic disease Code(s): D63.8 - ANEMIA IN OTHER CHRONIC DISEASES CLASSIFIED ELSEWHERE (3) Diarrhea Code(s): R19.7 - DIARRHEA, UNSPECIFIED (4) ESRD (end stage renal disease) Code(s): N18.6 - END STAGE RENAL DISEASE (5) Renal cell carcinoma Code(s): C64.9 - MALIGNANT NEOPLASM OF UNSP KIDNEY, EXCEPT RENAL PELVIS
[2018-06-28] MEDS ORDERED: SODIUM CHLORIDE 250 ML IV PRN (14:24)
--- NOTE | 2018-06-28 14:24 | PN ---
Progress Note, Physician History of Present Illness: Pt seen and examined at bedside. He is awake and alert. He still complains of diarrhea but feels that it is improving. - Current Medication List Current Medications: Active Medications Atorvastatin Calcium (Lipitor -) 10 mg PO [facility] Last Admin: 06/27/18 21:36 Dose: 10 mg Calcium Acetate (Phoslo -) 667 mg PO TIDCM [facility] Last Admin: 06/28/18 11:44 Dose: 667 mg Insulin Aspart (Novolog Vial Sliding Scale -) 1 vial SQ [facility]; Protocol Last Admin: 06/28/18 11:42 Dose: Not Given Insulin Detemir (Levemir Vial) 7 units SQ [facility] Last Admin: 06/27/18 21:36 Dose: 7 units Levothyroxine Sodium (Synthroid -) 25 mcg PO DAILY@0700 [facility] Last Admin: 06/28/18 06:19 Dose: 25 mcg Vancomycin HCl (Vancomycin Oral Solution) 125 mg PO Q6HPO [facility] Last Admin: 06/28/18 11:44 Dose: 125 mg - Objective Vital Signs: Vital Signs Temperature 99.6 F 06/28/18 10:00 Pulse Rate 111 H 06/28/18 10:00 Respiratory Rate 20 06/28/18 10:00 Blood Pressure 118/74 06/28/18 10:00 O2 Sat by Pulse Oximetry (%) 96 06/27/18 22:00 Constitutional: Yes: Calm Eyes: Yes: Conjunctiva Clear HENT: Yes: Atraumatic Neck: Yes: Supple Cardiovascular: Yes: S1, S2 Respiratory: Yes: CTA Bilaterally Gastrointestinal: Yes: Normal Bowel Sounds, Soft Genitourinary: Yes: WNL Musculoskeletal: Yes: WNL Edema: No Neurological: Yes: Oriented Psychiatric: Yes: Oriented Labs: CBC, BMP 06/27/18 07:30 06/27/18 07:30 INR, PTT INR 1.16 (0.83-1.09) H 06/26/18 06:30 Problem List - Problems (1) Anemia of chronic disease Code(s): D63.8 - ANEMIA IN OTHER CHRONIC DISEASES CLASSIFIED ELSEWHERE (2) Diarrhea Code(s): R19.7 - DIARRHEA, UNSPECIFIED (3) ESRD (end stage renal disease) Code(s): N18.6 - END STAGE RENAL DISEASE (4) Renal cell carcinoma Code(s): C64.9 - MALIGNANT NEOPLASM OF UNSP KIDNEY, EXCEPT RENAL PELVIS Assessment/Plan Current Medications Generic Name Dose Route Start Last Admin Trade Name Mitchell PRN Reason Stop Dose Admin Atorvastatin Calcium 10 mg 06/25/18 22:00 06/27/18 21:36 Lipitor - PO 10 mg HS JAMES Administration Calcium Acetate 667 mg 06/26/18 08:00 06/28/18 11:44 Phoslo - PO 667 mg TIDCM JAMES Administration Insulin Aspart 1 vial 06/25/18 22:00 06/28/18 11:42 Novolog Vial Sliding Scale - SQ Not Given ACHS [facility] Protocol Insulin Detemir 7 units 06/26/18 22:00 06/27/18 21:36 Levemir Vial SQ 7 units HS JAMES Administration Levothyroxine Sodium 25 mcg 06/26/18 07:00 06/28/18 06:19 Synthroid - PO 25 mcg DAILY@0700 JAMES Administration Vancomycin HCl 125 mg 06/26/18 15:53 06/28/18 11:44 Vancomycin Oral Solution PO 125 mg Q6HPO JAMES Administration Impression 1. ESRD 2. diarrhea 3. anemia 4. hypothyroid 5. renal cell cancer Plan - HD in am - can keep off of fluids - epogen for anemia - will follow - 3:30 hrs, 2k bath, heparin 1000 bolus with 500 maintenance, aranesp 25 mcg given on Friday, venofer 50 weekly, access permacath
--- NOTE | 2018-06-28 15:40 | PN ---
Progress Note (short form) - Note Progress Note: Patient seen in follow up. No new complaints. Ongoing diarrhea "off and on". No significant events overnight. Inpatient Meds reviewed. On Examination: Current Medications Generic Name Dose Route Start Last Admin Trade Name Mitchell PRN Reason Stop Dose Admin Atorvastatin Calcium 10 mg 06/25/18 22:00 06/27/18 21:36 Lipitor - PO 10 mg HS JAMES Administration Calcium Acetate 667 mg 06/26/18 08:00 06/28/18 11:44 Phoslo - PO 667 mg TIDCM JAMES Administration Epoetin Toñito 5,000 unit 06/29/18 14:24 Epogen - IVPUSH 06/29/18 14:25 ONCE ONE Heparin Sodium (Porcine) 1,000 unit 06/29/18 14:24 Heparin - IVPUSH 06/29/18 14:25 ONCE ONE Heparin Sodium (Porcine) 500 unit 06/29/18 14:30 Heparin - IVPUSH 06/29/18 16:31 Q1H JAMES Sodium Chloride 250 mls @ 3,000 mls/hr 06/28/18 14:24 Normal Saline - IV 06/29/18 14:24 PRN PRN Hypotension during Dialysis Insulin Aspart 1 vial 06/25/18 22:00 06/28/18 11:42 Novolog Vial Sliding Scale - SQ Not Given ACHS [facility] Protocol Insulin Detemir 7 units 06/26/18 22:00 06/27/18 21:36 Levemir Vial SQ 7 units HS JAMES Administration Levothyroxine Sodium 25 mcg 06/26/18 07:00 06/28/18 06:19 Synthroid - PO 25 mcg DAILY@0700 JAMES Administration Vancomycin HCl 125 mg 06/26/18 15:53 06/28/18 11:44 Vancomycin Oral Solution PO 125 mg Q6HPO JAMES Administration General: In no acute distress, lying comfortably in bed. Extremities: No pallor or icterus. No pedal edema. No palpable lymphadenopathy. CVS: S1, S2, regular, no gallop or murmur. Chest: good air entry bilaterally, clear Abdomen: Non-distended, non-tender, no palpable organomegaly. Neuro: Alert, oriented, non-focal. Labs: CBC, BMP 06/27/18 07:30 06/27/18 07:30 Assessment. Patient with recent RCC, s/p nephrectomy (apparently completely resected) - with April 2018, followed by prolonged admission for sepsis (?surgical bed), discharged end of May, now admitted with C. diff colitis. Ongoing oral vancomycin. Known to Dr. Padilla (urogenital oncology at [facility]) - had wanted to start adjuvant sunitinib previously. No pressing need to start now - will follow up at [facility] when discharged for further management regardinhg his prior malignancy.
--- NOTE | 2018-06-28 16:51 | PN ---
Progress Note (short form) - Note Progress Note: CDAC. On vanco po. No events overnight. Comfortable. Normal abdomen. Normal WBC. ESRD on HD. -BRAT diet -cholestyramine po bid 1 hrs before or after all other medications. Discussed with the patient and his nurse.
[2018-06-28] MEDS ORDERED: INSULIN (NOVOLOG) ASPART 100 UNITS/ML 10ML VIAL ONE (21:01)
[2018-06-28] MEDS: ATORVASTATIN CA 10 MG TABLET (FP) PO SCH (22:03)
[2018-06-28] MEDS: INSULIN (LEVEMIR) 100 UNITS/ML UNITS SQ SCH (22:05)
[2018-06-28] MEDS: CHOLESTYRAMINE/SUCROSE 4 GM PACKET PO SCH (22:17)
[2018-06-29] MEDS: VANCOMYCIN 250 MG/5 ML ORAL SOLUTION PO SCH ×6 (00:56→23:42)
[2018-06-29] MEDS: LEVOTHYROXINE NA 25 MCG TABLET (FP) PO SCH (06:04)
[2018-06-29] MEDS: INSULIN SLIDING SCALE (NOVOLOG) 1 VIAL SQ SCH ×4 (06:10→21:08)
[2018-06-29 08:06] LABS: HEMATOCRIT 26.3 % (35.4-49); HEMOGLOBIN 8.8 GM/dL (11.7-16.9); MCH 30.7 pg (25.7-33.7); MCHC 33.7 g/dl (32.0-35.9); MEAN CELL VOLUME 91.1 fl (80-96); MEAN PLT VOLUME 8.6 fl (7.5-11.1); PLATELET COUNT 251 K/MM3 (134-434); RBC 2.88 M/mm3 (4.00-5.60); RDW 16.7 % (11.9-15.9); WHITE BLOOD COUNT 13.7 K/mm3 (4.0-10.0)
[2018-06-29] MEDS: CALCIUM ACETATE 667 MG CAPSULE (FP) PO SCH ×3 (08:20→17:39)
[2018-06-29 08:34] LABS: CHLORIDE 99 mmol/L (98-107); POTASSIUM 3.7 mmol/L (3.5-5.1); SODIUM 136 mmol/L (136-145)
[2018-06-29] MEDS ORDERED: PT OWN MED DRAWER 7, Y5N ONE ×2 (08:35→12:52)
[2018-06-29 08:41] LABS: ALBUMIN 2.1 g/dl (3.4-5.0); ALK PHOS 108 U/L (45-117); ANION GAP 13 MMOL/L (8-16); BILIRUBIN,TOTAL 0.4 mg/dL (0.2-1.0); BLOOD UREA NITROGEN 53 mg/dL (7-18); CO2 24 mmol/L (21-32); CREATININE 4.5 mg/dL (0.55-1.3); GLUCOSE,RANDOM 113 mg/dL (74-106); SGOT/AST 22 U/L (15-37); SGPT/ALT 17 U/L (13-61); TOT PROT 5.8 g/dl (6.4-8.2)
[2018-06-29 09:49] LABS: PLATELET ESTIMATE ADEQUATE
[2018-06-29] MEDS: CHOLESTYRAMINE/SUCROSE 4 GM PACKET PO SCH (10:21)
--- NOTE | 2018-06-29 10:44 | PN ---
GI Progress Note Subjective: C. Diff Toxin/Antigen + from 06/26 No abdominal pain Still with diarrhea. Patient describes unchanged frequency - Objective Vital Signs: Vital Signs Temperature 98.9 F 06/29/18 05:36 Pulse Rate 107 H 06/29/18 05:36 Respiratory Rate 20 06/29/18 05:36 Blood Pressure 136/74 06/29/18 05:36 O2 Sat by Pulse Oximetry (%) 96 06/27/18 22:00 Constitutional: Calm Eyes: No: Sclera Icterus Cardiovascular: Yes: Regular Rate and Rhythm. No: Murmur Respiratory: Yes: CTA Bilaterally Gastrointestinal Inspection: Yes: Scars (RUQ scar). No: Distention ...Auscultate: Yes: Normoactive Bowel Sounds ...Palpate: Yes: Soft. No: Guarding, Tenderness (Improved from prior exam) ...Percussion: No: Tympanitic Edema: No (No LE edema) Neurological: Yes: Alert, Oriented Labs: CBC, BMP 06/29/18 07:50 06/29/18 07:50 INR, PTT INR 1.16 (0.83-1.09) H 06/26/18 06:30 Hepatic Panel Total Bilirubin 0.4 mg/dL (0.2-1.0) 06/29/18 07:50 AST 22 U/L (15-37) 06/29/18 07:50 ALT 17 U/L (13-61) 06/29/18 07:50 Alkaline Phosphatase 108 U/L (45-117) 06/29/18 07:50 Albumin 2.1 g/dl (3.4-5.0) L 06/29/18 07:50 Problem List - Problems (1) C. difficile colitis Assessment/Plan: Continued on PO Vancomycin: On day #3. Started 06/26 Changed Cholestyramine to 4g at 12 noon for 3 days Low fiber diet Code(s): A04.72 - ENTEROCOLITIS D/T CLOSTRIDIUM DIFFICILE, NOT SPCF RECUR
--- NOTE | 2018-06-29 11:46 | PN ---
Progress Note (short form) - Note Progress Note: pt seen/ examined looks better says diarrhea persists afebrile non toxic appearance c diff + Vital Signs Temp 98.9 F 06/29/18 05:36 Pulse 107 H 06/29/18 05:36 Resp 20 06/29/18 09:00 BP 136/74 06/29/18 05:36 Pulse Ox 96 06/27/18 22:00 Intake & Output 06/28/18 06/28/18 06/29/18 11:59 23:59 11:59 Intake Total 280 Balance 280 Weight 181 lb 4.8 oz Intake: Oral 280 Other: Voiding Method Urinal Diaper Urinal # Unmeasured Voids Void 0 Bowel Movement Yes Yes No # Bowel Movements 2 2 2 Weight Measurement Method Built in [facility] Active Medications Atorvastatin Calcium (Lipitor -) 10 mg PO HS [facility] Last Admin: 06/28/18 22:03 Dose: 10 mg Calcium Acetate (Phoslo -) 667 mg PO TIDCM [facility] Last Admin: 06/29/18 08:20 Dose: 667 mg Cholestyramine Resin (Questran Light Packet -) 4 gm PO DAILY [facility] Epoetin Toñito (Epogen -) 5,000 unit IVPUSH ONCE ONE Stop: 06/29/18 14:25 Heparin Sodium (Porcine) (Heparin -) 1,000 unit IVPUSH ONCE ONE Stop: 06/29/18 14:25 Heparin Sodium (Porcine) (Heparin -) 500 unit IVPUSH Q1H [facility] Stop: 06/29/18 16:31 Sodium Chloride (Normal Saline -) 250 mls @ 3,000 mls/hr IV PRN PRN PRN Reason: Hypotension during Dialysis Stop: 06/29/18 14:24 Insulin Aspart (Novolog Vial Sliding Scale -) 1 vial SQ [facility]; Protocol Last Admin: 06/29/18 06:10 Dose: Not Given Insulin Detemir (Levemir Vial) 7 units SQ [facility] Last Admin: 06/28/18 22:05 Dose: 7 units Levothyroxine Sodium (Synthroid -) 25 mcg PO DAILY@0700 [facility] Last Admin: 06/29/18 06:04 Dose: Not Given Vancomycin HCl (Vancomycin Oral Solution) 125 mg PO Q6HPO [facility] Last Admin: 06/29/18 06:04 Dose: 125 mg CBC, BMP 06/29/18 07:50 06/29/18 07:50 Microbiology 06/25/18 14:03 Blood Culture - Preliminary Blood - Peripheral Venous NO GROWTH OBTAINED AFTER 72 HOURS, INCUBATION TO CONTINUE FOR 2 DAYS. 06/25/18 14:03 Blood Culture - Preliminary Blood - Peripheral Venous NO GROWTH OBTAINED AFTER 72 HOURS, INCUBATION TO CONTINUE FOR 2 DAYS. 06/25/18 22:00 Salmonella/Shigella Culture - Final Stool NO GROWTH OF SALMONELLA OR SHIGELLA SPECIES OBTAINED Campylobacter Culture - Final NO GROWTH OF CAMPYLOBACTER SPECIES OBTAINED Yersinia Culture - Final NO GROWTH OF YERSINIA SPECIES OBTAINED Vibrio Culture - Final Escherichia coli 0157 Culture - Final NO GROWTH OF E COLI 0157 OBTAINED Physical Exam Constitutional: Yes: No Distress, Calm. Better Eyes: Yes: Conjunctiva Clear Neck: Yes: Supple Cardiovascular: Yes: Regular Rate and Rhythm. Right side chest- shiley + Respiratory: Yes: CTA Bilaterally Gastrointestinal: Yes: Soft, Decreased tenderness. Edema: No Assessment/Plan In summary 57 year-old male with a PMH significant for ESRD (last session Friday), IDDM, and renal carcinoma s/p right nephrectomy (April 2018, [facility]). Patient presented to ED from [facility] where he has been for the past two weeks for short- term rehab following surgery. Multiple episodes of non-bloody diarrhea x 48 hours. . Reportedly had fever to 101 prior to transfer from [facility] to ED Continue abx-- po vanco stool culture c diff - +ve gi/ i/d on case discussed with pt/ nursing staff c diff precautions increased wbc cholestramine added discussed with Dr. Jim Aguilera also f/u labs will monitor today if stable/ better -- will consider d/c in am will follow Problem List - Problems (1) C. difficile diarrhea Code(s): A04.72 - ENTEROCOLITIS D/T CLOSTRIDIUM DIFFICILE, NOT SPCF RECUR (2) Anemia of chronic disease Code(s): D63.8 - ANEMIA IN OTHER CHRONIC DISEASES CLASSIFIED ELSEWHERE (3) Diarrhea Code(s): R19.7 - DIARRHEA, UNSPECIFIED (4) ESRD (end stage renal disease) Code(s): N18.6 - END STAGE RENAL DISEASE (5) Renal cell carcinoma Code(s): C64.9 - MALIGNANT NEOPLASM OF UNSP KIDNEY, EXCEPT RENAL PELVIS
[2018-06-29] MEDS ORDERED: HEPARIN NA (PORCINE) 5,000 UNITS/ML 1ML VIAL IVPUSH ONE (14:15)
[2018-06-29] MEDS ORDERED: EPOETIN ALFA 2,000 UNIT/1 ML VIAL IVPUSH ONE (14:15)
--- NOTE | 2018-06-29 14:27 | PN ---
Progress Note, Physician History of Present Illness: Pt seen and examined at bedside. He is awake and alert. He denies shortness of breath. He still has diarrhea. - Current Medication List Current Medications: Active Medications Atorvastatin Calcium (Lipitor -) 10 mg PO HS [facility] Last Admin: 06/28/18 22:03 Dose: 10 mg Calcium Acetate (Phoslo -) 667 mg PO TIDCM [facility] Last Admin: 06/29/18 08:20 Dose: 667 mg Cholestyramine Resin (Questran Light Packet -) 4 gm PO DAILY [facility] Heparin Sodium (Porcine) (Heparin -) 500 unit IVPUSH Q1H [facility] Stop: 06/29/18 16:31 Sodium Chloride (Normal Saline -) 250 mls @ 3,000 mls/hr IV PRN PRN PRN Reason: Hypotension during Dialysis Stop: 06/29/18 14:24 Insulin Aspart (Novolog Vial Sliding Scale -) 1 vial SQ [facility]; Protocol Last Admin: 06/29/18 06:10 Dose: Not Given Insulin Detemir (Levemir Vial) 7 units SQ [facility] Last Admin: 06/28/18 22:05 Dose: 7 units Levothyroxine Sodium (Synthroid -) 25 mcg PO DAILY@0700 [facility] Last Admin: 06/29/18 06:04 Dose: Not Given Vancomycin HCl (Vancomycin Oral Solution) 125 mg PO Q6HPO [facility] Last Admin: 06/29/18 06:04 Dose: 125 mg - Objective Vital Signs: Vital Signs Temperature 97.5 F L 06/29/18 13:25 Pulse Rate 101 H 06/29/18 13:30 Respiratory Rate 18 06/29/18 13:30 Blood Pressure 105/67 06/29/18 13:30 O2 Sat by Pulse Oximetry (%) 96 06/27/18 22:00 Constitutional: Yes: Calm Eyes: Yes: Conjunctiva Clear HENT: Yes: Atraumatic Neck: Yes: Supple Cardiovascular: Yes: S1, S2 Respiratory: Yes: CTA Bilaterally Gastrointestinal: Yes: Normal Bowel Sounds, Soft Genitourinary: Yes: WNL Musculoskeletal: Yes: WNL Edema: No Neurological: Yes: Oriented Psychiatric: Yes: Oriented Labs: CBC, BMP 06/29/18 07:50 06/29/18 07:50 INR, PTT INR 1.16 (0.83-1.09) H 06/26/18 06:30 Problem List - Problems (1) Anemia of chronic disease Code(s): D63.8 - ANEMIA IN OTHER CHRONIC DISEASES CLASSIFIED ELSEWHERE (2) Diarrhea Code(s): R19.7 - DIARRHEA, UNSPECIFIED (3) ESRD (end stage renal disease) Code(s): N18.6 - END STAGE RENAL DISEASE (4) Renal cell carcinoma Code(s): C64.9 - MALIGNANT NEOPLASM OF UNSP KIDNEY, EXCEPT RENAL PELVIS Assessment/Plan Current Medications Generic Name Dose Route Start Last Admin Trade Name Freq PRN Reason Stop Dose Admin Atorvastatin Calcium 10 mg 06/25/18 22:00 06/28/18 22:03 Lipitor - PO 10 mg HS JAMES Administration Calcium Acetate 667 mg 06/26/18 08:00 06/29/18 08:20 Phoslo - PO 667 mg TIDCM JAMES Administration Cholestyramine Resin 4 gm 06/30/18 12:00 Questran Light Packet - PO DAILY JAMES Heparin Sodium (Porcine) 500 unit 06/29/18 14:30 Heparin - IVPUSH 06/29/18 16:31 Q1H [facility] Insulin Aspart 1 vial 06/25/18 22:00 06/29/18 06:10 Novolog Vial Sliding Scale - SQ Not Given ACHS [facility] Protocol Insulin Detemir 7 units 06/26/18 22:00 06/28/18 22:05 Levemir Vial SQ 7 units HS JAMES Administration Levothyroxine Sodium 25 mcg 06/26/18 07:00 06/29/18 06:04 Synthroid - PO Not Given DAILY@0700 JAMES Vancomycin HCl 125 mg 06/26/18 15:53 06/29/18 06:04 Vancomycin Oral Solution PO 125 mg Q6HPO JAMES Administration Impression 1. ESRD 2. diarrhea 3. anemia 4. hypothyroid 5. renal cell cancer Plan - HD today - encourage PO intake - ID follow up - pt still with diarrhea - epogen for anemia - will follow - 3:30 hrs, 2k bath, heparin 1000 bolus with 500 maintenance, aranesp 25 mcg given on Friday, venofer 50 weekly, access permacath
[2018-06-29] MEDS: HEPARIN NA (PORCINE) 5,000 UNITS/ML 1ML VIAL IVPUSH SCH ×3 (14:30→16:22)
--- NOTE | 2018-06-29 16:16 | PN ---
Progress Note (short form) - Note Progress Note: diarrhea improving abdominal pain resolving on HD Vital Signs Period Temp Pulse Resp BP Sys/Vazquez Pulse Ox Last 24 Hr 97.5 F-100 F 92-111 18-20 95-136/63-77 cor-rrr lungs clear abd soft,nt ext no edema CBC, BMP 06/29/18 07:50 06/29/18 07:50 Microbiology 06/25/18 14:03 Blood - Peripheral Venous Blood Culture - Preliminary NO GROWTH OBTAINED AFTER 96 HOURS, INCUBATION TO CONTINUE FOR 1 DAYS. 06/25/18 14:03 Blood - Peripheral Venous Blood Culture - Preliminary NO GROWTH OBTAINED AFTER 96 HOURS, INCUBATION TO CONTINUE FOR 1 DAYS. 06/25/18 22:00 Stool Salmonella/Shigella Culture - Final NO GROWTH OF SALMONELLA OR SHIGELLA SPECIES OBTAINED 06/25/18 22:00 Stool Campylobacter Culture - Final NO GROWTH OF CAMPYLOBACTER SPECIES OBTAINED 06/25/18 22:00 Stool Yersinia Culture - Final NO GROWTH OF YERSINIA SPECIES OBTAINED 06/25/18 22:00 Stool Vibrio Culture - Final 06/25/18 22:00 Stool Escherichia coli 0157 Culture - Final NO GROWTH OF E COLI 0157 OBTAINED 06/26/18 22:00 Stool Gram Stain - Final 06/25/18 22:00 Urine - Urine Clean Catch Urine Culture - Final NO GROWTH OBTAINED 06/26/18 22:00 Stool Clostridium difficile Antigen (LUCIANA) - Final 06/26/18 22:00 Stool Clostridium difficile Toxin Assay - Final imp/reccd cdiff colitis- would plan 2 weeks po vancomycin reviewed with patient risk of relapse and need to inform his PMD if diarrhea recurs after treatment esrd/hd s/p right nephrectomy please call back if needed
[2018-06-29] MEDS ORDERED: INSULIN (NOVOLOG) ASPART 100 UNITS/ML 10ML VIAL ONE (21:01)
[2018-06-29] MEDS: ATORVASTATIN CA 10 MG TABLET (FP) PO SCH (21:09)
[2018-06-29] MEDS: INSULIN (LEVEMIR) 100 UNITS/ML UNITS SQ SCH (21:09)
--- NOTE | 2018-06-29 23:02 | PN ---
Progress Note (short form) - Note Progress Note: Patient seen and examined Still with some diarrhea Last Vital Signs Temp Pulse Resp BP Pulse Ox 97.9 F 96 H 20 123/64 96 06/29/18 21:00 06/29/18 21:00 06/29/18 21:00 06/29/18 21:00 06/27/18 22:00 Cor: RSR, No murmurs, No gallops Lungs: Clear to P&A Abd: Soft, Normal bowel sounds, No organomegaly Ext:No significant edema Abnormal Lab Results 06/29/18 06/29/18 07:50 07:50 WBC 13.7 H RBC 2.88 L Hgb 8.8 L Hct 26.3 L RDW 16.7 H Absolute Neuts (auto) 10.2 H Eosinophils % (Manual) 8.0 H D BUN 53 H Creatinine 4.5 H Random Glucose 113 H Calcium 8.0 L Total Protein 5.8 L Albumin 2.1 L Active Medications Generic Name Dose Route Start Last Admin Trade Name Freq PRN Reason Stop Dose Admin Atorvastatin Calcium 10 mg 06/25/18 22:00 06/29/18 21:09 Lipitor - PO 10 mg HS JAMES Administration Calcium Acetate 667 mg 06/26/18 08:00 06/29/18 17:39 Phoslo - PO Not Given [facility]CM [facility] Cholestyramine Resin 4 gm 06/30/18 12:00 Questran Light Packet - PO DAILY [facility] Insulin Aspart 1 vial 06/25/18 22:00 06/29/18 21:08 Novolog Vial Sliding Scale - SQ Not Given ACHS [facility] Protocol Insulin Detemir 7 units 06/26/18 22:00 06/29/18 21:09 Levemir Vial SQ 7 units HS JAMES Administration Levothyroxine Sodium 25 mcg 06/26/18 07:00 06/29/18 06:04 Synthroid - PO Not Given DAILY@0700 [facility] Vancomycin HCl 125 mg 06/26/18 15:53 06/29/18 23:42 Vancomycin Oral Solution PO 125 mg Q6HPO JAMES Administration A/P 57 y/o with ESRD/DM/HLD admitted with diarrhea/c.diff colitis h/o rt. nephrectomy 04/2018 for renal cell cancer adjuvant Sunitinib on hold s
[2018-06-30] MEDS: VANCOMYCIN 250 MG/5 ML ORAL SOLUTION PO SCH ×3 (05:30→17:28)
[2018-06-30] MEDS: INSULIN SLIDING SCALE (NOVOLOG) 1 VIAL SQ SCH ×4 (06:24→21:41)
[2018-06-30] MEDS: LEVOTHYROXINE NA 25 MCG TABLET (FP) PO SCH (06:24)
[2018-06-30 06:35] LABS: BASO % 0.9 % (0-2.0); HEMATOCRIT 26.5 % (35.4-49); HEMOGLOBIN 8.9 GM/dL (11.7-16.9); LYMPH % 10.4 % (8-40); MCH 30.3 pg (25.7-33.7); MCHC 33.4 g/dl (32.0-35.9); MEAN CELL VOLUME 90.7 fl (80-96); MEAN PLT VOLUME 8.4 fl (7.5-11.1); MONO % 8.3 % (3.8-10.2); NEUT % 73.4 % (42.8-82.8); PLATELET COUNT 276 K/MM3 (134-434); RBC 2.92 M/mm3 (4.00-5.60); RDW 16.8 % (11.9-15.9); WHITE BLOOD COUNT 11.4 K/mm3 (4.0-10.0)
[2018-06-30 07:19] LABS: CHLORIDE 100 mmol/L (98-107); POTASSIUM 3.5 mmol/L (3.5-5.1); SODIUM 138 mmol/L (136-145)
[2018-06-30 07:36] LABS: ALK PHOS 101 U/L (45-117); ANION GAP 10 MMOL/L (8-16); BILIRUBIN,TOTAL 0.6 mg/dL (0.2-1); BLOOD UREA NITROGEN 28 mg/dL (7-18); CALCIUM 7.9 mg/dL (8.5-10.1); CO2 28 mmol/L (21-32); CREATININE 3.2 mg/dL (0.55-1.3); GLUCOSE,RANDOM 112 mg/dL (74-106); SGOT/AST 20 U/L (15-37); SGPT/ALT 17 U/L (13-61); TOT PROT 5.8 g/dl (6.4-8.2)
[2018-06-30] MEDS: CALCIUM ACETATE 667 MG CAPSULE (FP) PO SCH ×3 (08:00→17:28)
[2018-06-30 10:55] LABS: ACANTHOCYTES 0; ANISOCYTOSIS 0; HELMET CELLS 0; HOWELL-JOLLY BODIES 0; MACROCYTOSIS 0; OVALOCYTE 0; PLATELET ESTIMATE NORMAL; ROULEAU 0; SICKELED CELLS 0; TARGET CELLS 0; TEAR DROP CELLS 0; TOXIC GRANULATION 0
[2018-06-30] MEDS ORDERED: INSULIN (NOVOLOG) ASPART 100 UNITS/ML 10ML VIAL ONE ×3 (11:54→21:26)
[2018-06-30] MEDS: CHOLESTYRAMINE/ASPARTAME 4 GM PACKET PO SCH (12:09)
--- NOTE | 2018-06-30 12:19 | PN ---
Progress Note (short form) - Note Progress Note: - Note Progress Note: pt seen/ examined looks better no diarrhea, only mucous no abd pain hungry afebrile non toxic appearance Vital Signs - 24 hr 06/29/18 06/30/18 06/30/18 21:00 05:45 09:00 Temperature 97.9 F 98.5 F 98.3 F Pulse Rate 96 H 103 H 102 H Respiratory 20 20 19 Rate Blood Pressure 123/64 112/67 109/60 Current Medications Generic Name Dose Route Start Last Admin Trade Name Freq PRN Reason Stop Dose Admin Atorvastatin Calcium 10 mg 06/25/18 22:00 06/29/18 21:09 Lipitor - PO 10 mg HS JAMES Administration Calcium Acetate 667 mg 06/26/18 08:00 06/30/18 17:28 Phoslo - PO 667 mg TIDCM JAMES Administration Cholestyramine Resin 4 gm 06/30/18 12:00 06/30/18 12:09 Questran Light Packet - PO 4 gm DAILY JAMES Administration Epoetin Toñito 6,000 unit 07/01/18 14:28 Procrit - IVPUSH 07/01/18 14:29 ONCE ONE Heparin Sodium (Porcine) 1,000 unit 07/01/18 14:28 Heparin - IVPUSH 07/01/18 14:29 ONCE ONE Sodium Chloride 250 mls @ 3,000 mls/hr 06/30/18 14:28 Normal Saline - IV 07/01/18 14:28 PRN PRN Hypotension during Dialysis Iron Sucrose 100 mg/ Sodium 100 mls @ 200 mls/hr 07/01/18 14:28 Chloride IVPB 07/01/18 14:57 ONCE ONE Insulin Aspart 1 vial 06/25/18 22:00 06/30/18 17:28 Novolog Vial Sliding Scale - SQ Not Given ACHS [facility] Protocol Insulin Detemir 7 units 06/26/18 22:00 06/29/18 21:09 Levemir Vial SQ 7 units HS JAMES Administration Levothyroxine Sodium 25 mcg 06/26/18 07:00 06/30/18 06:24 Synthroid - PO 25 mcg DAILY@0700 JAMES Administration Multivit/Ca Carb/B Cmplx/FA/Prenat 1 tablet 06/30/18 14:30 06/30/18 17:28 Nephro-Brad - PO 1 tablet DAILY JAMES Administration Vancomycin HCl 125 mg 06/26/18 15:53 06/30/18 17:28 Vancomycin Oral Solution PO 125 mg Q6HPO JAMES Administration Laboratory Results - last 24 hr 06/29/18 06/30/18 06/30/18 21:07 06:00 06:00 WBC 11.4 H RBC 2.92 L Hgb 8.9 L Hct 26.5 L MCV 90.7 MCH 30.3 MCHC 33.4 RDW 16.8 H Plt Count 276 MPV 8.4 Absolute Neuts (auto) 8.3 H Neutrophils % 73.4 Neutrophils % (Manual) 64.7 Band Neutrophils % 1.0 Lymphocytes % 10.4 D Lymphocytes % (Manual) 14.7 D Monocytes % 8.3 Monocytes % (Manual) 7 Eosinophils % 7.0 H D Eosinophils % (Manual) 6.9 H Basophils % 0.9 Basophils % (Manual) 0.0 Myelocytes % (Man) 3 H D Promyelocytes % (Man) 0 Blast Cells % (Manual) 0 Nucleated RBC % 0 Metamyelocytes 0 Hypochromia 0 Toxic Granulation 0 Dohle Bodies 0 Platelet Estimate Normal Polychromasia 0 Poikilocytosis 0 Basophilic Stippling 0 Anisocytosis 0 Microcytosis 0 Macrocytosis 0 Spherocytes 0 Sickle Cells 0 Target Cells 0 Tear Drop Cells 0 Ovalocytes 0 Stomatocytes 0 Helmet Cells 0 [place] Bodies 0 [place] Rings 0 [place] Cells 0 Acanthocytes (Spur) 0 Rouleaux 0 Fragmented RBCs 0 Schistocytes 0 Sodium 138 Potassium 3.5 Chloride 100 Carbon Dioxide 28 Anion Gap 10 BUN 28 H Creatinine 3.2 H Creat Clearance w eGFR 19.98 POC Glucometer 118 Random Glucose 112 H Calcium 7.9 L Total Bilirubin 0.6 AST 20 ALT 17 Alkaline Phosphatase 101 Total Protein 5.8 L Albumin 2.0 L 06/30/18 06/30/18 06/30/18 06:23 12:07 17:27 WBC RBC Hgb Hct MCV MCH MCHC RDW Plt Count MPV Absolute Neuts (auto) Neutrophils % Neutrophils % (Manual) Band Neutrophils % Lymphocytes % Lymphocytes % (Manual) Monocytes % Monocytes % (Manual) Eosinophils % Eosinophils % (Manual) Basophils % Basophils % (Manual) Myelocytes % (Man) Promyelocytes % (Man) Blast Cells % (Manual) Nucleated RBC % Metamyelocytes Hypochromia Toxic Granulation Dohle Bodies Platelet Estimate Polychromasia Poikilocytosis Basophilic Stippling Anisocytosis Microcytosis Macrocytosis Spherocytes Sickle Cells Target Cells Tear Drop Cells Ovalocytes Stomatocytes Helmet Cells [place] Bodies [place] Rings Anjali Cells Acanthocytes (Spur) Rouleaux Fragmented RBCs Schistocytes Sodium Potassium Chloride Carbon Dioxide Anion Gap BUN Creatinine Creat Clearance w eGFR POC Glucometer 115 132 132 Random Glucose Calcium Total Bilirubin AST ALT Alkaline Phosphatase Total Protein Albumin Physical Exam Constitutional: Yes: No Distress, Calm. Better Eyes: Yes: Conjunctiva Clear Neck: Yes: Supple Cardiovascular: Yes: Regular Rate and Rhythm. Right side chest- shiley + Respiratory: Yes: CTA Bilaterally Gastrointestinal: Yes: Soft, Decreased tenderness. Edema: No Assessment/Plan In summary 57 year-old male with a PMH significant for ESRD (last session Friday), IDDM, and renal carcinoma s/p right nephrectomy (April 2018, [facility]). Patient presented to ED from [facility] where he has been for the past two weeks for short- term rehab following surgery. Multiple episodes of non-bloody diarrhea x 48 hours. . Reportedly had fever to 101 prior to transfer from [facility] to ED Continue abx-- po vanco- total 14 days c diff - +ve discussed with pt/ nursing staff c diff precautions cholestramine added will d/c in am after dialysis Problem List - Problems (1) C. difficile colitis Code(s): A04.72 - ENTEROCOLITIS D/T CLOSTRIDIUM DIFFICILE, NOT SPCF RECUR (2) C. difficile diarrhea Code(s): A04.72 - ENTEROCOLITIS D/T CLOSTRIDIUM DIFFICILE, NOT SPCF RECUR (3) Colitis Code(s): K52.9 - NONINFECTIVE GASTROENTERITIS AND COLITIS, UNSPECIFIED (4) Diarrhea Code(s): R19.7 - DIARRHEA, UNSPECIFIED (5) ESRD (end stage renal disease) Code(s): N18.6 - END STAGE RENAL DISEASE (6) Renal cell carcinoma Code(s): C64.9 - MALIGNANT NEOPLASM OF UNSP KIDNEY, EXCEPT RENAL PELVIS
--- NOTE | 2018-06-30 14:27 | PN ---
Progress Note, Physician History of Present Illness: Pt seen and examined at bedside. He is awake and alert. He feels that the diarrhea is starting to improve. - Current Medication List Current Medications: Active Medications Atorvastatin Calcium (Lipitor -) 10 mg PO [facility] Last Admin: 06/29/18 21:09 Dose: 10 mg Calcium Acetate (Phoslo -) 667 mg PO TIDCM [facility] Last Admin: 06/30/18 12:09 Dose: 667 mg Cholestyramine Resin (Questran Light Packet -) 4 gm PO DAILY [facility] Last Admin: 06/30/18 12:09 Dose: 4 gm Insulin Aspart (Novolog Vial Sliding Scale -) 1 vial SQ [facility]; Protocol Last Admin: 06/30/18 12:09 Dose: Not Given Insulin Detemir (Levemir Vial) 7 units SQ [facility] Last Admin: 06/29/18 21:09 Dose: 7 units Levothyroxine Sodium (Synthroid -) 25 mcg PO DAILY@0700 [facility] Last Admin: 06/30/18 06:24 Dose: 25 mcg Vancomycin HCl (Vancomycin Oral Solution) 125 mg PO Q6HPO [facility] Last Admin: 06/30/18 12:10 Dose: 125 mg - Objective Vital Signs: Vital Signs Temperature 98.3 F 06/30/18 09:00 Pulse Rate 102 H 06/30/18 09:00 Respiratory Rate 20 06/30/18 09:00 Blood Pressure 109/60 06/30/18 09:00 O2 Sat by Pulse Oximetry (%) 96 06/27/18 22:00 Constitutional: Yes: Calm Eyes: Yes: Conjunctiva Clear HENT: Yes: Atraumatic Neck: Yes: Supple Cardiovascular: Yes: S1, S2 Respiratory: Yes: CTA Bilaterally Gastrointestinal: Yes: Normal Bowel Sounds, Soft Genitourinary: Yes: WNL Edema: No Neurological: Yes: Oriented Psychiatric: Yes: Oriented Labs: CBC, BMP 06/30/18 06:00 06/30/18 06:00 INR, PTT INR 1.16 (0.83-1.09) H 06/26/18 06:30 Problem List - Problems (1) Anemia of chronic disease Code(s): D63.8 - ANEMIA IN OTHER CHRONIC DISEASES CLASSIFIED ELSEWHERE (2) Diarrhea Code(s): R19.7 - DIARRHEA, UNSPECIFIED (3) ESRD (end stage renal disease) Code(s): N18.6 - END STAGE RENAL DISEASE (4) Renal cell carcinoma Code(s): C64.9 - MALIGNANT NEOPLASM OF UNSP KIDNEY, EXCEPT RENAL PELVIS Assessment/Plan Current Medications Generic Name Dose Route Start Last Admin Trade Name Freq PRN Reason Stop Dose Admin Atorvastatin Calcium 10 mg 06/25/18 22:00 06/29/18 21:09 Lipitor - PO 10 mg HS JAMES Administration Calcium Acetate 667 mg 06/26/18 08:00 06/30/18 12:09 Phoslo - PO 667 mg TIDCM JAMES Administration Cholestyramine Resin 4 gm 06/30/18 12:00 06/30/18 12:09 Questran Light Packet - PO 4 gm DAILY JAMES Administration Insulin Aspart 1 vial 06/25/18 22:00 06/30/18 12:09 Novolog Vial Sliding Scale - SQ Not Given ACHS JAMES Protocol Insulin Detemir 7 units 06/26/18 22:00 06/29/18 21:09 Levemir Vial SQ 7 units HS JAMES Administration Levothyroxine Sodium 25 mcg 06/26/18 07:00 06/30/18 06:24 Synthroid - PO 25 mcg DAILY@0700 JAMES Administration Vancomycin HCl 125 mg 06/26/18 15:53 06/30/18 12:10 Vancomycin Oral Solution PO 125 mg Q6HPO JAMES Administration Impression 1. ESRD 2. diarrhea 3. anemia 4. hypothyroid 5. renal cell cancer Plan - HD in am - diarrhea improving - pt is tolerating diet - can add nepro - epogen for anemia - will follow - 3:30 hrs, 2k bath, heparin 1000 bolus with 500 maintenance, aranesp 25 mcg given on Friday, venofer 50 weekly, access permacath
--- NOTE | 2018-06-30 14:54 | PN ---
Progress Note (short form) - Note Progress Note: Patient seen and examined Remains weak, bedriddden Diarrhea improved - now mucousy Last Vital Signs Temp Pulse Resp BP Pulse Ox 98.3 F 102 H 20 109/60 96 06/30/18 09:00 06/30/18 09:00 06/30/18 09:00 06/30/18 09:00 06/27/18 22:00 HEENT: KATHRYN, EOM Intact Oropharynx: No thrush, No mucositis Cor: RSR, No murmurs, No gallops Lungs: Clear to P&A Abd: Soft, Normal bowel sounds, No organomegaly, no tenderness Ext:No significant edema, SCD Skin: No rashes, Integument intact CBC, BMP 06/30/18 06:00 06/30/18 06:00 Current Medications Generic Name Dose Route Start Last Admin Trade Name Freq PRN Reason Stop Dose Admin Atorvastatin Calcium 10 mg 06/25/18 22:00 06/29/18 21:09 Lipitor - PO 10 mg HS JAMES Administration Calcium Acetate 667 mg 06/26/18 08:00 06/30/18 12:09 Phoslo - PO 667 mg TIDCM JAMES Administration Cholestyramine Resin 4 gm 06/30/18 12:00 06/30/18 12:09 Questran Light Packet - PO 4 gm DAILY JAMES Administration Epoetin Toñito 6,000 unit 07/01/18 14:28 Epogen - IVPUSH 07/01/18 14:29 ONCE ONE Heparin Sodium (Porcine) 1,000 unit 07/01/18 14:28 Heparin - IVPUSH 07/01/18 14:29 ONCE ONE Sodium Chloride 250 mls @ 3,000 mls/hr 06/30/18 14:28 Normal Saline - IV 07/01/18 14:28 PRN PRN Hypotension during Dialysis Iron Sucrose 100 mg/ Sodium 100 mls @ 200 mls/hr 07/01/18 14:28 Chloride IVPB 07/01/18 14:57 ONCE ONE Insulin Aspart 1 vial 06/25/18 22:00 06/30/18 12:09 Novolog Vial Sliding Scale - SQ Not Given ACHS JAMES Protocol Insulin Detemir 7 units 06/26/18 22:00 06/29/18 21:09 Levemir Vial SQ 7 units HS JAMES Administration Levothyroxine Sodium 25 mcg 06/26/18 07:00 06/30/18 06:24 Synthroid - PO 25 mcg DAILY@0700 [facility] Administration Multivit/Ca Carb/B Cmplx/FA/Prenat 1 tablet 06/30/18 14:30 Nephro-Brad - PO DAILY [facility] Vancomycin HCl 125 mg 06/26/18 15:53 06/30/18 12:10 Vancomycin Oral Solution PO 125 mg Q6HPO [facility] Administration Microbiology 06/25/18 14:03 Blood - Peripheral Venous Blood Culture - Preliminary NO GROWTH OBTAINED AFTER 96 HOURS, INCUBATION TO CONTINUE FOR 1 DAYS. 06/25/18 14:03 Blood - Peripheral Venous Blood Culture - Preliminary NO GROWTH OBTAINED AFTER 96 HOURS, INCUBATION TO CONTINUE FOR 1 DAYS. Microbiology 06/25/18 14:03 Blood - Peripheral Venous Blood Culture - Preliminary NO GROWTH OBTAINED AFTER 96 HOURS, INCUBATION TO CONTINUE FOR 1 DAYS. 06/25/18 14:03 Blood - Peripheral Venous Blood Culture - Preliminary NO GROWTH OBTAINED AFTER 96 HOURS, INCUBATION TO CONTINUE FOR 1 DAYS. 06/25/18 22:00 Stool Salmonella/Shigella Culture - Final NO GROWTH OF SALMONELLA OR SHIGELLA SPECIES OBTAINED 06/25/18 22:00 Stool Campylobacter Culture - Final NO GROWTH OF CAMPYLOBACTER SPECIES OBTAINED 06/25/18 22:00 Stool Yersinia Culture - Final NO GROWTH OF YERSINIA SPECIES OBTAINED 06/25/18 22:00 Stool Vibrio Culture - Final 06/25/18 22:00 Stool Escherichia coli 0157 Culture - Final NO GROWTH OF E COLI 0157 OBTAINED 06/26/18 22:00 Stool Gram Stain - Final 06/25/18 22:00 Urine - Urine Clean Catch Urine Culture - Final NO GROWTH OBTAINED 06/26/18 22:00 Stool Clostridium difficile Antigen (LUCIANA) - Final 06/26/18 22:00 Stool Clostridium difficile Toxin Assay - Final Impression:: RCC -s/p nephrectomy C. diff enteritis - under therapy Deconditioning -for PT Holding Sutent Problem List - Problems (1) Renal cell carcinoma Code(s): C64.9 - MALIGNANT NEOPLASM OF UNSP KIDNEY, EXCEPT RENAL PELVIS (2) Diarrhea Code(s): R19.7 - DIARRHEA, UNSPECIFIED (3) Anemia of chronic disease Code(s): D63.8 - ANEMIA IN OTHER CHRONIC DISEASES CLASSIFIED ELSEWHERE (4) ESRD (end stage renal disease) Code(s): N18.6 - END STAGE RENAL DISEASE
--- NOTE | 2018-06-30 15:02 | PN ---
GI Progress Note Subjective: Acute events No abdominal pain o diarrhea today,just some mucoid BMs' - Objective Vital Signs: Vital Signs Temperature 98.3 F 06/30/18 09:00 Pulse Rate 102 H 06/30/18 09:00 Respiratory Rate 20 06/30/18 09:00 Blood Pressure 109/60 06/30/18 09:00 O2 Sat by Pulse Oximetry (%) 96 06/27/18 22:00 Constitutional: Calm Eyes: No: Sclera Icterus Cardiovascular: Yes: Regular Rate and Rhythm Respiratory: Yes: CTA Bilaterally Gastrointestinal Inspection: No: Distention ...Auscultate: Yes: Normoactive Bowel Sounds ...Palpate: No: Hepatomegaly, Splenomegaly, Tenderness Edema: No (No LE edema) Labs: CBC, BMP 06/30/18 06:00 06/30/18 06:00 INR, PTT INR 1.16 (0.83-1.09) H 06/26/18 06:30 Problem List - Problems (1) C. difficile colitis Assessment/Plan: Clinical improvement Continue Vancosin 125mg PO Q6 hrs for 14 days total Avoid PPI therapy Likely multidactorial and heme following. When acute issues are resolved, outpatient evaluation for colonoscopy Code(s): A04.72 - ENTEROCOLITIS D/T CLOSTRIDIUM DIFFICILE, NOT SPCF RECUR
[2018-06-30] MEDS: VITAMIN B COMP W-C 1 EA TABLET PO SCH (17:28)
[2018-06-30 20:41] VITALS: BMI 26.4
[2018-06-30] MEDS: ATORVASTATIN CA 10 MG TABLET (FP) PO SCH (21:42)
[2018-06-30] MEDS: INSULIN (LEVEMIR) 100 UNITS/ML UNITS SQ SCH (21:42)
[2018-07-01] MEDS: VANCOMYCIN 250 MG/5 ML ORAL SOLUTION PO SCH ×4 (00:03→17:03)
[2018-07-01] MEDS: LEVOTHYROXINE NA 25 MCG TABLET (FP) PO SCH (06:05)
[2018-07-01] MEDS: INSULIN SLIDING SCALE (NOVOLOG) 1 VIAL SQ SCH ×3 (06:05→16:48)
[2018-07-01] MEDS ORDERED: SODIUM CHLORIDE 250 ML IV PRN (08:19)
[2018-07-01] MEDS ORDERED: HEPARIN NA (PORCINE) 5,000 UNITS/ML 1ML VIAL IVPUSH ONE (08:30)
[2018-07-01] MEDS: CALCIUM ACETATE 667 MG CAPSULE (FP) PO SCH ×3 (08:32→16:58)
[2018-07-01 08:52] LABS: HEMATOCRIT 24.6 % (35.4-49); HEMOGLOBIN 8.3 GM/dL (11.7-16.9); MCH 30.5 pg (25.7-33.7); MCHC 33.7 g/dl (32.0-35.9); MEAN CELL VOLUME 90.5 fl (80-96); MEAN PLT VOLUME 8.3 fl (7.5-11.1); PLATELET COUNT 300 K/MM3 (134-434); RBC 2.71 M/mm3 (4.00-5.60); RDW 16.2 % (11.9-15.9); WHITE BLOOD COUNT 13.8 K/mm3 (4.0-10.0)
[2018-07-01] MEDS ORDERED: EPOETIN ALFA 10,000 UNIT/1 ML VIAL IVPUSH ONE (09:30)
[2018-07-01] MEDS ORDERED: EPOETIN ALFA 3,000 UNIT/1 ML ML IVPUSH ONE ×2 (09:30→10:00)
[2018-07-01 09:35] LABS: ANION GAP 9 MMOL/L (8-16); BLOOD UREA NITROGEN 36 mg/dL (7-18); CALCIUM 7.4 mg/dL (8.5-10.1); CHLORIDE 100 mmol/L (98-107); CO2 27 mmol/L (21-32); CREATININE 4.1 mg/dL (0.55-1.3); GLUCOSE,RANDOM 181 mg/dL (74-106); POTASSIUM 3.2 mmol/L (3.5-5.1); SODIUM 136 mmol/L (136-145)
[2018-07-01] MEDS: VITAMIN B COMP W-C 1 EA TABLET PO SCH (09:56)
[2018-07-01] MEDS: CHOLESTYRAMINE/ASPARTAME 4 GM PACKET PO SCH (09:56)
[2018-07-01] MEDS ORDERED: IRON SUCROSE INJECTION 100 MG in SODIUM CHLORIDE 95 ML IVPB ONE (10:00)
--- NOTE | 2018-07-01 11:16 | DS ---
Physical Examination Vital Signs: Vital Signs Temperature 98.4 F 07/01/18 08:20 Pulse Rate 102 H 07/01/18 10:30 Respiratory Rate 18 07/01/18 10:30 Blood Pressure 120/72 07/01/18 10:30 O2 Sat by Pulse Oximetry (%) 96 06/27/18 22:00 Constitutional: Yes: No Distress, Calm Cardiovascular: Yes: Regular Rate and Rhythm Respiratory: Yes: Diminished Gastrointestinal: Yes: Normal Bowel Sounds, Soft. No: Tenderness Edema: No Labs: CBC, BMP 07/01/18 08:30 07/01/18 08:30 Discharge Summary Reason For Visit: DIARRHEA Current Active Problems Anemia of chronic disease (Acute) C. difficile colitis (Acute) C. difficile diarrhea (Acute) Colitis (Acute) Diarrhea (Acute) ESRD (end stage renal disease) (Acute) Renal cell carcinoma (Acute) Hospital Course: Admitted for diarrhea He was seen by ID and GI Cdiff positive PO vanco started Pt better No further diarrhea Stable for dc to NH on 10 days more of PO vanco Condition: Improved - Instructions Diet, Activity, Other Instructions: 10 days more of Vanco PO Referrals: Jewell Huerta MD [Primary Care Provider] - Disposition: [facility] - Home Medications Comprehensive Discharge Medication List: Ambulatory Orders Acetaminophen [Tylenol .Extra-Strength -] 500 mg PO Q4H PRN 06/25/18 Aspirin 81 mg PO DAILY 06/25/18 Calcium Acetate [Phoslyra] 667 mg PO DAILY 06/25/18 Levothyroxine [Synthroid -] 25 mcg PO DAILY 06/25/18 Ondansetron HCl [Zofran] 4 mg PO PRN PRN 06/25/18 Simvastatin [Zocor -] 20 mg PO HS 06/25/18 Vitamin B Comp W-C [Nephro-Brad -] 1 tablet PO DAILY 06/25/18 Cholestyramine/Aspartame [Questran Light Packet -] 4 gm PO DAILY #30 packet Insulin (Levemir) [Levemir Vial] 7 units SQ HS #30 units 07/01/18 Vancomycin Oral Solution 125 mg PO Q6HPO 10 Days ml 07/01/18
--- NOTE | 2018-07-01 11:24 | PN ---
Progress Note, Physician History of Present Illness: Pt seen and examine at bedside. He is awake and alert. He is tolerating HD. - Current Medication List Current Medications: Active Medications Atorvastatin Calcium (Lipitor -) 10 mg PO HS [facility] Last Admin: 06/30/18 21:42 Dose: 10 mg Calcium Acetate (Phoslo -) 667 mg PO TIDCM [facility] Last Admin: 07/01/18 08:32 Dose: Not Given Cholestyramine Resin (Questran Light Packet -) 4 gm PO DAILY [facility] Last Admin: 07/01/18 09:56 Dose: Not Given Insulin Aspart (Novolog Vial Sliding Scale -) 1 vial SQ [facility]; Protocol Last Admin: 07/01/18 06:05 Dose: Not Given Insulin Detemir (Levemir Vial) 7 units SQ [facility] Last Admin: 06/30/18 21:42 Dose: 7 units Levothyroxine Sodium (Synthroid -) 25 mcg PO DAILY@0700 [facility] Last Admin: 07/01/18 06:05 Dose: 25 mcg Multivit/Ca Carb/B Cmplx/FA/Prenat (Nephro-Brad -) 1 tablet PO DAILY [facility] Last Admin: 07/01/18 09:56 Dose: Not Given Potassium Chloride (K-Dur -) 40 meq PO ONCE ONE Stop: 07/01/18 11:22 Vancomycin HCl (Vancomycin Oral Solution) 125 mg PO Q6HPO [facility] Last Admin: 07/01/18 05:51 Dose: 125 mg - Objective Vital Signs: Vital Signs Temperature 98.4 F 07/01/18 08:20 Pulse Rate 102 H 07/01/18 10:30 Respiratory Rate 18 07/01/18 10:30 Blood Pressure 120/72 07/01/18 10:30 O2 Sat by Pulse Oximetry (%) 96 06/27/18 22:00 Constitutional: Yes: Calm Eyes: Yes: Conjunctiva Clear HENT: Yes: Atraumatic Cardiovascular: Yes: S1, S2 Respiratory: Yes: CTA Bilaterally Gastrointestinal: Yes: Normal Bowel Sounds, Soft Genitourinary: Yes: WNL Musculoskeletal: Yes: WNL Edema: No Neurological: Yes: Oriented Psychiatric: Yes: Oriented Labs: CBC, BMP 07/01/18 08:30 07/01/18 08:30 INR, PTT INR 1.16 (0.83-1.09) H 06/26/18 06:30 Problem List - Problems (1) Anemia of chronic disease Code(s): D63.8 - ANEMIA IN OTHER CHRONIC DISEASES CLASSIFIED ELSEWHERE (2) Diarrhea Code(s): R19.7 - DIARRHEA, UNSPECIFIED (3) ESRD (end stage renal disease) Code(s): N18.6 - END STAGE RENAL DISEASE (4) Renal cell carcinoma Code(s): C64.9 - MALIGNANT NEOPLASM OF UNSP KIDNEY, EXCEPT RENAL PELVIS Assessment/Plan Current Medications Generic Name Dose Route Start Last Admin Trade Name Freq PRN Reason Stop Dose Admin Atorvastatin Calcium 10 mg 06/25/18 22:00 06/30/18 21:42 Lipitor - PO 10 mg HS JAMES Administration Calcium Acetate 667 mg 06/26/18 08:00 07/01/18 08:32 Phoslo - PO Not Given TIDCM [facility] Cholestyramine Resin 4 gm 06/30/18 12:00 07/01/18 09:56 Questran Light Packet - PO Not Given DAILY [facility] Insulin Aspart 1 vial 06/25/18 22:00 07/01/18 06:05 Novolog Vial Sliding Scale - SQ Not Given ACHS [facility] Protocol Insulin Detemir 7 units 06/26/18 22:00 06/30/18 21:42 Levemir Vial SQ 7 units HS JAMES Administration Levothyroxine Sodium 25 mcg 06/26/18 07:00 07/01/18 06:05 Synthroid - PO 25 mcg DAILY@0700 JAMES Administration Multivit/Ca Carb/B Cmplx/FA/Prenat 1 tablet 06/30/18 14:30 07/01/18 09:56 Nephro-Brad - PO Not Given DAILY [facility] Potassium Chloride 40 meq 07/01/18 11:21 K-Dur - PO 07/01/18 11:22 ONCE ONE Vancomycin HCl 125 mg 06/26/18 15:53 07/01/18 05:51 Vancomycin Oral Solution PO 125 mg Q6HPO JAMES Administration Impression 1. ESRD 2. diarrhea 3. anemia 4. hypothyroid 5. renal cell cancer Plan - HD today - replace potassium as he has diarrhea - 3 k bath - epogen for anemia - will follow - 3:30 hrs, 2k bath, heparin 1000 bolus with 500 maintenance, aranesp 25 mcg given on Friday, venofer 50 weekly, access permacath
[2018-07-01] MEDS ORDERED: POTASSIUM CHLORIDE TABS 20 MEQ TABLET.ER (FP) PO ONE (12:00)
[2018-07-01 19:37] VITALS: BP 119/59; PULSE 107; TEMP 98.1
== END 2018-07-01 20:06 | DRG 248 ==
LOC: JER 13:19 → JERBED 17:40 → J6S 20:24
PROVIDERS: ADMIT Internal Medicine; ATTEND Internal Medicine
PROC: 5A1D70Z Performance of Urinary Filtration, Intermittent, Less than 6 Hours Per Day (ICD-10-PCS; principal; 2018-07-01)
DX: A04.72 Enterocolitis due to Clostridium difficile, not specified as recurrent (principal); D63.1 Anemia in chronic kidney disease; C64.9 Malignant neoplasm of unspecified kidney, except renal pelvis; N18.6 End stage renal disease; E11.9 Type 2 diabetes mellitus without complications; Z79.4 Long term (current) use of insulin; E87.6 Hypokalemia; E03.9 Hypothyroidism, unspecified
CPT/HCPCS: 36415; 71045-TC-FY; 74150-TC; 80048; 80053; 81003; 81015; 82272; 82728; 82803; 82962; 83540; 83550; 83605; 83735; 84100; 84443; 84484; 85025; 85027; 85610; 85730; 86704; 86706; 86708; 86803; 86850; 86900; 86901; 86922; 87040; 87045; 87046; 87086; 87205; 87324; 87340; 87449; 93005; 93010; 97116-GP; 97162-GP; 99283-25; J0885; J1644; J1756; J7030